=== PATIENT | female | born 1940 | race Caucasian/White ===

== ENCOUNTER 2019-07-09 13:17 | Emergency (ER) | payer OTHER, MEDICAID ==
[~2019-07-09] VITALS: Ht 165.1 cm; Wt 63.5 kg
[2019-07-09] MEDS ORDERED: NS 250 ML IV ONE (13:30)
[2019-07-09] MEDS ORDERED: SPIR25TA PO (13:46)
[2019-07-09] MEDS ORDERED: MELO15TA13 PO (13:46)
[2019-07-09] MEDS ORDERED: OSCAL PO (13:46)
[2019-07-09] MEDS ORDERED: NEU100 PO (13:47)
[2019-07-09] MEDS ORDERED: ESCI10TA PO (13:47)
[2019-07-09] MEDS ORDERED: CYAN250010 PO (13:47)
[2019-07-09] MEDS ORDERED: NOR10 PO (13:47)
[2019-07-09] MEDS ORDERED: MEMA10TA PO (13:47)
[2019-07-09] MEDS ORDERED: SER25 PO (13:47)
[2019-07-09] MEDS ORDERED: DILT120C89 PO (13:47)
[2019-07-09] MEDS ORDERED: MAGN800O PO (13:47)
[2019-07-09] MEDS ORDERED: DOCU-144 PO (13:47)
[2019-07-09 13:52] VITALS: BP_SYST 125
[2019-07-09 14:10] LABS: BASOPHILS % (AUTO) 0.4 % (0.0-2.0); EOSINOPHILS % (AUTO) 0.8 % (0.0-4.0); HEMATOCRIT 31.2 % (36-48); HEMOGLOBIN 10.2 g/dL (12.0-16.0); LYMPHOCYTES # (AUTO) 1.3 K/uL (1.0-5.5); LYMPHOCYTES % (AUTO) 22.3 % (20.5-51.5); MEAN CORPUSCULAR HEMOGLOBIN 29 pg (27-31); MEAN CORPUSCULAR HGB CONC 33 % (32-36); MEAN CORPUSCULAR VOLUME 87 fL (79.0-98.0); MONOCYTES # (AUTO) 0.5 K/uL (0.0-1.0); MONOCYTES % (AUTO) 9.4 % (1.7-9.3); NEUTROPHILS # (AUTO) 3.9 K/uL (1.8-7.7); NEUTROPHILS % (AUTO) 67.1 % (40.0-70.0); PLATELET COUNT (AUTO) 281 K/uL (130-430); RED BLOOD CELL COUNT(AUTO) 3.58 MIL/uL (4.2-6.2); RED CELL DISTRIBUTION WIDTH 15.4 % (9.0-15.0); WHITE BLOOD COUNT (AUTO) 5.8 K/uL (4.8-10.8)
[2019-07-09 14:22] LABS: ANION GAP 7 (5-15); CALCIUM 8.6 mg/dL (8.4-11.0); CHLORIDE 105 mmol/L (98-107); CREATININE 0.94 mg/dL (0.55-1.30); GLUCOSE 79 mg/dL (70-99); POTASSIUM 4.5 mmol/L (3.5-5.1); SODIUM SERUM 139 mmol/L (136-145); UREA NITROGEN, BLOOD 19 mg/dL (8-21)
[2019-07-09 14:28] LABS: ALANINE AMINOTRANSFERASE 17 U/L (12-78); ALBUMIN 2.8 g/dL (3.4-4.8); ASPARTATE AMINOTRANSFERASE 13 U/L (10-37); TOTAL BILIRUBIN 0.2 mg/dL (0.0-1.0)
[2019-07-09 14:42] LABS: PROTHROMBIN TIME 10.4 SECS (9.5-12.5)
[2019-07-09 16:43] LABS: BILIRUBIN,URINE NEGATIVE (NEGATIVE); BLOOD, URINE NEGATIVE (NEGATIVE); CLARITY/URINE CLEAR (CLEAR); COLOR,URINE YELLOW (YELLOW); GLUCOSE,URINE NEGATIVE (NEGATIVE); KETONES,URINE NEGATIVE (NEGATIVE); LEUKOCYTE ESTERASE ,URINE NEGATIVE (NEGATIVE); NITRITE, URINE NEGATIVE (NEGATIVE); PROTEIN URINE NEGATIVE (NEGATIVE); UROBILINOGEN,URINE 0.2 (0.2-1.0)
[2019-07-09 17:58] VITALS: BP_SYST 129
== END 2019-07-09 17:58 | disposition home or self-care (01) ==
LOC: SED 13:17
DX: M25.562 Pain in left knee (principal); M25.561 Pain in right knee; Z00.00 Encounter for general adult medical examination without abnormal findings; Z79.899 Other long term (current) drug therapy
CPT/HCPCS: 36415; 71045; 80053; 81003; 83605; 84484; 85025; 85610; 85730; 86710; 87040; 87086; 93005; 99285; J7030

== ENCOUNTER 2019-08-23 13:02 | Inpatient (IN) | payer OTHER, MEDICAID ==
[~2019-08-23] VITALS: Ht 152.4 cm; Wt 69.4 kg
[2019-08-23 13:02] VITALS: BP_SYST 123
[~2019-08-23 13:02] MED LIST: CYAN250010 PO; DILT120C89 PO; DOCU-144 PO; ESCI10TA PO; MAGN800O PO; MELO15TA13 PO; MEMA10TA PO; NEU100 PO; NOR10 PO; OSCAL PO; SER25 PO; SPIR25TA PO
--- NOTE | 2019-08-23 13:02 | NUR ---
Patient to ER bed 3 to gown for evaluation. Side rails up. Report given to YANELIS Gregg.
--- NOTE | 2019-08-23 13:15 | NUR ---
VANDANA TO ASSUEM CARE. PT CALM, ALERT, RESP UNLABORED, SKIN WARM AND DRY. ROMANIAN SPEAKING IN FULL COMPLETE SENTENCES. DENIES PAIN. BLE 2+ PTTING EDEMA. NO DYSPNEA, NSR ON MONITOR NO ECTOPY
--- NOTE | 2019-08-23 13:20 | NUR ---
DR NICHOLS IN TO ASSESS
[2019-08-23] MEDS ORDERED: DONE10TA44 PO (13:32)
[2019-08-23] MEDS ORDERED: ACET325T53 PO (13:32)
[2019-08-23] MEDS ORDERED: OSCD500 PO (13:32)
[2019-08-23] MEDS ORDERED: ACET-2634 PO (13:32)
[2019-08-23] MEDS ORDERED: NITSL SL (13:32)
--- NOTE | 2019-08-23 13:33 | NUR ---
Medication reconciliation completed with information provided by [facility]. Any prior medication reconciliation on file was reviewed and corrected.
[2019-08-23 14:23] LABS: BASOPHILS % (AUTO) 0.4 % (0.0-2.0); EOSINOPHILS # (AUTO) 0.1 K/uL (0.0-0.4); EOSINOPHILS % (AUTO) 1.2 % (0.0-4.0); HEMATOCRIT 25.9 % (36-48); HEMOGLOBIN 8.6 g/dL (12.0-16.0); LYMPHOCYTES # (AUTO) 1.4 K/uL (1.0-5.5); LYMPHOCYTES % (AUTO) 17.2 % (20.5-51.5); MEAN CORPUSCULAR HEMOGLOBIN 29 pg (27-31); MEAN CORPUSCULAR HGB CONC 33 % (32-36); MEAN CORPUSCULAR VOLUME 87 fL (79.0-98.0); MONOCYTES # (AUTO) 0.6 K/uL (0.0-1.0); MONOCYTES % (AUTO) 7.4 % (1.7-9.3); NEUTROPHILS # (AUTO) 6.1 K/uL (1.8-7.7); NEUTROPHILS % (AUTO) 73.8 % (40.0-70.0); PLATELET COUNT (AUTO) 242 K/uL (130-430); RED BLOOD CELL COUNT(AUTO) 2.99 MIL/uL (4.2-6.2); WHITE BLOOD COUNT (AUTO) 8.3 K/uL (4.8-10.8)
[2019-08-23 14:39] LABS: ANION GAP 6 (5-15); CHLORIDE 106 mmol/L (98-107); CREATININE 0.94 mg/dL (0.55-1.30); GLUCOSE 100 mg/dL (70-99); POTASSIUM 3.9 mmol/L (3.5-5.1); SODIUM SERUM 139 mmol/L (136-145); UREA NITROGEN, BLOOD 17 mg/dL (8-21)
--- NOTE | 2019-08-23 14:50 | NUR ---
RESP UNLABORED, SLEEPING, EASILY AROUSED. VSS, NSR ON MONITOR NO ECTOPY. RESULTS PENDING
[2019-08-23 14:53] LABS: ALANINE AMINOTRANSFERASE 15 U/L (12-78); ALBUMIN 2.9 g/dL (3.4-4.8); ASPARTATE AMINOTRANSFERASE 17 U/L (10-37); TOTAL BILIRUBIN 0.2 mg/dL (0.0-1.0)
[2019-08-23] MEDS ORDERED: ceFAZolin SODIUM 1 GM in D5W 50 ML IV ONE (15:15)
[2019-08-23] MEDS ORDERED: ceFAZolin SODIUM 1 GM VIAL ONE (15:39)
--- NOTE | 2019-08-23 15:49 | NUR ---
Patient will be admitted to care of MD. Admitted to M/S unit. Will go to room 111A. Belongings list completed. Complete and up to date summary report printed. SBAR report to be given at bedside with opportunity for questions.
--- NOTE | 2019-08-23 15:56 | NUR ---
ADMISSION NOTE Received patient from ER via rajwinder, received report from Cristino HILARIO. Patient admitted with diagnosis of Cellulitis. Patient oriented to hospital routine, call light, toileting and safety-patient verbalized understanding.
--- NOTE | 2019-08-23 16:00 | NUR ---
NOTES- IN BED, AWAKE FORGETFUL. SPEAK CZECH, UNDERSTAND SIMPLE HUNGARIAN. DENIES ANY PAIN OR DISCOMFORT. REDNESS ON BILATERAL LOWER EXTREMITIES. ORIENTED TO ENVIRONMENT AND CALL LIGHT USE. BED ALARM ON. WILL MONITOR.
[2019-08-23 16:48] VITALS: BP_SYST 141
--- NOTE | 2019-08-23 17:32 | NUR ---
NOTES- ASSISTED TO THE BATHROOM AND VOIDED, AMBULATE WITH STEADY GAIT. NO ACUTE DISTRESS NOTED.
--- NOTE | 2019-08-23 18:26 | NUR ---
closing notes- In bed, trying to get some sleep. does not want to eat, had sandwich earlier. no acute distress noted. will endorse to night nurse to take picture in the lower extremities.
--- NOTE | 2019-08-23 19:30 | NUR ---
Opening notes Patient is up in bed finishing dinner at this time. Breathing is even and unlabored. No signs of distress noted. 20G to right forearm is patent and saline locked. Patient has no other needs at this time. Bed is locked in the lowest position with call light within reach. Side rails up X 3. Bed alarm is on.
[2019-08-23 20:00] VITALS: BP_SYST 115
--- NOTE | 2019-08-23 21:00 | NUR ---
RN Rounds Patient is resting in bed at this time. Breathing is even and unlabored. No signs of distress noted. Patient has complaints of pain to bilateral lower extremities and right shoulder, will page MD. Vital signs are stable. No other needs at this time. Bed is locked in the lowest position with call light within reach. Side rails up X 3. Bed alarm is on.
--- NOTE | 2019-08-23 21:23 | NUR ---
Paged Dr. Evans, Rodney s/w Norma
--- NOTE | 2019-08-23 21:45 | NUR ---
Spoke to MD Evans Spoke to Dr. Evans and updated him on patient's current pain status. New orders given for pain medication, RN verified orders and is to input. to come in at a later time to assess and complete med rec.
[2019-08-23] MEDS: HYDROcodone/ACETAMIN 10-325 MG TAB PO PRN (22:27)
--- NOTE | 2019-08-23 22:30 | NUR ---
Medication Administered PRN pain medication. Educated patient on action and side effects, patient verbalized an understanding. No other needs at this time. Bed is locked in the lowest position with call light within reach. Bed alarm is on with side rails up X 3.
[2019-08-24 00:30] VITALS: BP_SYST 101
--- NOTE | 2019-08-24 00:30 | NUR ---
RN Rounds Patient is resting in bed with eyes closed. Breathing is even and unlabored. No signs of distress noted. Patient does not have any needs at this time. Bed is locked in the lowest position with call light within reach. Bed alarm is on with side rails up X 3.
[2019-08-24] MEDS: HYDROcodone/ACETAMIN 10-325 MG TAB PO PRN ×2 (04:54→22:01)
[2019-08-24] MEDS ORDERED: NITROGLYCERIN 0.4 MG TAB.SUBL SL STA (05:02)
[2019-08-24] MEDS ORDERED: MILK OF MAGNESIA 30 ML UDC PO PRN (05:15)
[2019-08-24] MEDS ORDERED: ACETAMINOPHEN 500 MG TABLET PO PRN (05:15)
[2019-08-24] MEDS ORDERED: ACETAMINOPHEN 325 MG TABLET PO PRN (05:15)
--- NOTE | 2019-08-24 05:15 | NUR ---
Dr. Evans at bedside Dr. Evans seen and examined patient. New orders inputted by
--- NOTE | 2019-08-24 06:57 | NUR ---
Nutrition Update Juve Scale 18 noted. Pt admitted for Cellulitis Diet: Regular BMI: 28.5 kg/m2 RD to follow per nutrition care standards.
--- NOTE | 2019-08-24 07:06 | NUR ---
Closing notes Patient is in bed resting. Breathing is even and unlabored. No signs of distress noted. 20G to right forearm is patent and saline locked. Patient uses BSC to void, patient is steady on her feet, standby asisst. Bed is locked in the lowest position with call light within reach. Side rails up X 3. Bed alarm is on. All needs met throughout shift. Will endorse care to dayshift RN
--- NOTE | 2019-08-24 07:15 | NUR ---
OPENING NOTES PT AWAKE, ALERT, AND ORIENTED TO PERSON TIME AND PLACE AT THIS TIME. CONFUSED IN CONVERSATION, CONTINUES TO MENTION SHOES. NONLABORED BREATHING NOTED ON ROOM AIR, O2 AT 98%. PT DENIES PAIN AND SOB AT THIS TIME. PT PULLED OUT IV LINE, REFUSES TO HAVE ONE INSERTED AT THIS TIME, WILL ATTEMPT LATER. NO ACUTE DISTRESS NOTED. BED LOCKED AND IN LOWEST POSITION. ALL NEEDS MET. CALL LIGHT IN REACH. FALL AND ASPIRATION PRECAUTIONS IN PLACE. CONTINUE TO MONITOR.
[2019-08-24 08:00] VITALS: BP_SYST 136
[2019-08-24] MEDS ORDERED: ESCITALOPRAM OXALATE 10 MG TABLET PO SCH (09:00)
[2019-08-24] MEDS ORDERED: CALCIUM CARBONATE/VITAMIN D3 1 TAB TABLET PO SCH (09:00)
[2019-08-24] MEDS: DOCUSATE SODIUM 100 MG CAPSULE PO SCH ×2 (09:53→20:43)
[2019-08-24] MEDS: CYANOCOBALAMIN 1000 mCg TABLET PO SCH (09:53)
[2019-08-24] MEDS: MELOXICAM 7.5 MG TABLET PO SCH (09:53)
[2019-08-24] MEDS: CALCIUM CARBONATE/VITAMIN D3 1 TAB TABLET PO SCH (09:54)
[2019-08-24] MEDS: MEMANTINE HCL 5 MG TABLET PO SCH ×2 (09:54→20:43)
[2019-08-24] MEDS: DILTIAZEM HCL 120 MG CAP.SR.24H PO SCH (09:54)
[2019-08-24] MEDS: amLODIPine BESYLATE 10 MG TABLET PO SCH (09:54)
[2019-08-24] MEDS: DONEPEZIL HCL 5 MG TABLET (ARICEPT) PO SCH (09:55)
[2019-08-24] MEDS: GABAPENTIN 100 MG CAPSULE PO SCH ×3 (09:55→20:44)
[2019-08-24] MEDS: CITALOPRAM HYDROBROMIDE 20 MG TABLET PO SCH (09:55)
[2019-08-24] MEDS: SPIRONOLACTONE 25 MG TABLET (ALDACTONE) PO SCH (09:55)
[2019-08-24] MEDS: QUEtiapine FUMARATE 25 MG TABLET PO SCH ×2 (09:55→20:44)
--- NOTE | 2019-08-24 09:55 | NUR ---
ROUTINE MEDS ROUTINE MEDS ADMINISTERED ORDERED PER MD, EDUCATION GIVEN, TOLERATED WILL. CONTINUE TO MONITOR.
[2019-08-24 12:30] VITALS: BP_SYST 148
--- NOTE | 2019-08-24 13:00 | NUR ---
IV RE-INSERTION: PT REMOVED IV THIS AM. PT GIVING CONSENT TO START IV AT THIS TIME. SUCCESSFUL AFTER 4 ATTEMPTS. TWO ATTEMPTS FROM YANELIS WISEMAN. TWO ATTEMPTS FROM YANELIS YANG. STARTED PT ON VANCO. WILL OBSERVE FOR ANY SIGNS OF INFILTRATION.
[2019-08-24] MEDS: VANCOMYCIN HCL 1 GM/NS PREMIX 250 ML IV SCH (13:51)
--- NOTE | 2019-08-24 16:30 | NUR ---
PT PULLED OUT IV. PT REFUSING TO HAVE IV LINE RE-INSERTED. AWARE. MIDLINE PLACEMENT ORDER RECEIVED. CALLED PT'S CHILD AMANDA LOPEZ TWICE, AMANDA NOT ANSWERING, LEFT VOICEMAIL FOR CALL BACK.
[2019-08-24 16:31] VITALS: BP_SYST 129
--- NOTE | 2019-08-24 18:45 | NUR ---
CLOSING NOTES PT AWAKE AND SITTING UP IN BED. NONLABORED BREATHING NOTED ON ROOM AIR. PT DENIES PAIN AND SOB AT THIS TIME. NO ACUTE DISTRESS NOTED. BED LOCKED AND IN LOWEST POSITION. ALL NEEDS MET. CALL LIGHT IN REACH. FALL AND ASPIRATION PRECAUTIONS IN PLACE. WILL ENDORSE TO NOC NURSE.
--- NOTE | 2019-08-24 19:30 | NUR ---
Opening notes Patient is up out of bed at this time. Breathing is even and unlabored. No signs of distress noted. Patient is alert, but not oriented to time or place. She is steady on her feet, requires frequent reorientation. Patient does not currently have IV access and MD is aware, waiting to get consent for midline placement. No needs at this time. Bed is locked in the lowest position with call light within reach. Side rails up X 3.
[2019-08-24] MEDS: MUPIROCIN 2% TOPICAL OINTMENT 22 GM NS SCH (20:44)
--- NOTE | 2019-08-24 20:45 | NUR ---
Medication Administered scheduled medication. Educated patient on action and side effects, patient verbalized an understanding. Patient likes to be standing by door, place chair next to door, patient is no sitting and is visible to nurses station. No other needs at this time. Bed is locked in the lowest position with call light within reach.
--- NOTE | 2019-08-24 21:18 | NUR ---
Obtained Consent spoke to patient's daughter, Cary Damico, over the phone and obtained consent for midline placement. Charge nurse YANELIS Calhoun verified consent.
--- NOTE | 2019-08-24 21:30 | NUR ---
Left Message for PICC line nurse Left message for Kirk informing him we obtained consent for midline placement, and if he could come and place midline before 11AM tomorrow.
--- NOTE | 2019-08-24 22:47 | NUR ---
RN Rounds Patient is now resting in bed. Breathing is even and unlabored. No signs of distress noted. Bed is locked in the lowest position with call light within reach. Bed alarm is on with side rails up X3
[2019-08-25] VITALS: BP_SYST 120
--- NOTE | 2019-08-25 00:30 | NUR ---
RN Rounds Patient is now resting in bed. Breathing is even and unlabored. No signs of distress noted. At times does get out of bed and has to be reoriented back into bed. Bed is locked in the lowest position with call light within reach. Bed alarm is on with side rails up X3
--- NOTE | 2019-08-25 03:00 | NUR ---
RN Rounds Patient is resting in bed with eyes closed. Breathing is even and unlabored. No signs of distress noted. Bed is locked in the lowest position with call light within reach. Bed alarm is on with side rails up X3
[2019-08-25 06:17] LABS: PROTHROMBIN TIME 10.5 SECS (9.5-12.5)
[2019-08-25 06:20] LABS: BASOPHILS % (AUTO) 0.6 % (0.0-2.0); EOSINOPHILS # (AUTO) 0.1 K/uL (0.0-0.4); EOSINOPHILS % (AUTO) 1.9 % (0.0-4.0); HEMATOCRIT 26.5 % (36-48); HEMOGLOBIN 8.6 g/dL (12.0-16.0); LYMPHOCYTES # (AUTO) 1.3 K/uL (1.0-5.5); LYMPHOCYTES % (AUTO) 19.3 % (20.5-51.5); MEAN CORPUSCULAR HEMOGLOBIN 28 pg (27-31); MEAN CORPUSCULAR HGB CONC 33 % (32-36); MEAN CORPUSCULAR VOLUME 86 fL (79.0-98.0); MONOCYTES # (AUTO) 0.7 K/uL (0.0-1.0); MONOCYTES % (AUTO) 10.4 % (1.7-9.3); NEUTROPHILS # (AUTO) 4.4 K/uL (1.8-7.7); NEUTROPHILS % (AUTO) 67.8 % (40.0-70.0); PLATELET COUNT (AUTO) 247 K/uL (130-430); RED BLOOD CELL COUNT(AUTO) 3.06 MIL/uL (4.2-6.2); RETICULOCYTE COUNT 1.7 % (0.5-1.5); WHITE BLOOD COUNT (AUTO) 6.6 K/uL (4.8-10.8)
--- NOTE | 2019-08-25 06:39 | NUR ---
Closing notes Patient is in bed resting. Breathing is even and unlabored. No signs of distress noted. Patient uses BSC or bathroom to void, patient is steady on her feet, standby assist. Occult stool sample was not collected, patient did not have BM during shift. Bed is locked in the lowest position with call light within reach. Side rails up X 3. Bed alarm is on. All needs met throughout shift. Will endorse care to dayshift RN
[2019-08-25 06:42] LABS: SODIUM SERUM 138 mmol/L (136-145)
[2019-08-25 06:43] LABS: ANION GAP 4 (5-15); CALCIUM 8.2 mg/dL (8.4-11.0); CHLORIDE 105 mmol/L (98-107); CREATININE 1.07 mg/dL (0.55-1.30); GLUCOSE 63 mg/dL (70-99); TOTAL BILIRUBIN 0.4 mg/dL (0.0-1.0); UREA NITROGEN, BLOOD 29 mg/dL (8-21)
[2019-08-25 06:44] LABS: ALANINE AMINOTRANSFERASE 15 U/L (12-78); ALBUMIN 3.2 g/dL (3.4-4.8); ASPARTATE AMINOTRANSFERASE 14 U/L (10-37); LACTATE DEHYDROGENASE 189 U/L (81-234)
[2019-08-25 07:43] LABS: TOTAL IRON BIND. CAPACITY 243 ug/dL (250-450)
[2019-08-25 08:00] VITALS: BP_SYST 136
[2019-08-25] MEDS: CALCIUM CARBONATE/VITAMIN D3 1 TAB TABLET PO SCH (08:27)
[2019-08-25] MEDS: amLODIPine BESYLATE 10 MG TABLET PO SCH (08:29)
[2019-08-25] MEDS: CITALOPRAM HYDROBROMIDE 20 MG TABLET PO SCH (08:29)
[2019-08-25] MEDS: SPIRONOLACTONE 25 MG TABLET (ALDACTONE) PO SCH (08:30)
[2019-08-25] MEDS: MEMANTINE HCL 5 MG TABLET PO SCH ×2 (08:30→21:51)
[2019-08-25] MEDS: QUEtiapine FUMARATE 25 MG TABLET PO SCH ×2 (08:31→21:51)
[2019-08-25] MEDS: DILTIAZEM HCL 120 MG CAP.SR.24H PO SCH (08:31)
[2019-08-25] MEDS: CYANOCOBALAMIN 1000 mCg TABLET PO SCH (08:31)
[2019-08-25] MEDS: GABAPENTIN 100 MG CAPSULE PO SCH ×3 (08:31→21:51)
[2019-08-25] MEDS: DONEPEZIL HCL 5 MG TABLET (ARICEPT) PO SCH (08:31)
[2019-08-25] MEDS: DOCUSATE SODIUM 100 MG CAPSULE PO SCH ×2 (08:31→21:50)
[2019-08-25] MEDS: MUPIROCIN 2% TOPICAL OINTMENT 22 GM NS SCH ×2 (08:32→21:50)
[2019-08-25] MEDS: MELOXICAM 7.5 MG TABLET PO SCH (09:08)
--- NOTE | 2019-08-25 09:36 | NUR ---
ALERT, ORIENTED, AND APPROPRIATE, MINIMAL ASSISTANCE FROM BED TO BSC, WALKED WITH A WALKER, SLOW BUT STEADY. ON FULL LIQUID DIET, TOLERATED WELL, DENIED ABDOMINAL PAIN AT THIS TIME
--- NOTE | 2019-08-25 11:15 | NUR ---
Assumed care for patient. Resting in bed. Persian speaking only. No shortness of breath on room air. Denies any pain. Oriented to name only. Thinks that her room is her house and is not aware of time. Midline in right upper arm intact. Fall and safety checks in place. Call light within reach. Will continue to monitor.
[2019-08-25] MEDS: VANCOMYCIN HCL 1 GM/NS PREMIX 250 ML IV SCH (11:53)
[2019-08-25 12:24] VITALS: BP_SYST 110
--- NOTE | 2019-08-25 12:30 | NUR ---
ROUNDS Resting in bed. No sign of distress. Midline IV intact. Administered antibiotics. Ambulates to the restroom independently. Safety checks done. Will continue to monitor.
--- NOTE | 2019-08-25 14:28 | NUR ---
SS NOTES/DCP: FISCAL SPECIALIST was referred by CM to see patient for DCP. Pt is Macedonian speaker only, collateral done with grand-daughter Cary Simmons @ [phone] instead. Pt is a resident at [facility] and has been there for 1 month now. Prior to admission at SNF, pt was staying with daughter and grand-daughter but patient needed more care prompting them to admit pt to SNF after a hospitalization. Pt is dependent on all her ADLs. Per grand-dtr, pt is ambulatory at times but sometimes refuses to walk. Pt also has Alzheimer/dementia for 3 years now. Per grand-daughter, pt's NOK, Cary Simmons (dtr) is responsible for patient's finances but Bryon Aguero (son) is the patient's DPOA (phone # unknown). Pt's source of income is her disability. When discharge, family prefers for patient to go back to [facility], as this is her permanent residence now. FISCAL SPECIALIST provided grand-dtr with phone number and encourage to contact SS if questions arise. No further SS needs identified but will remain available when needed.
--- NOTE | 2019-08-25 14:56 | NUR ---
ROUNDS Resting in bed. No sign of distress. Ate most of her lunch. Safety checks done. Call light within reach. Will continue to monitor.
[2019-08-25 16:12] VITALS: BP_SYST 118
--- NOTE | 2019-08-25 17:00 | NUR ---
ROUNDS Asleep in bed. No sign of distress. Safety checks done. Call light within reach. Will continue to monitor.
--- NOTE | 2019-08-25 18:36 | NUR ---
CLOSING NOTES Still asleep in bed. No sign of distress. Midline on right upper arm intact. All needs met throughout shift. Fall and safety checks done. Call light within reach. Will endorse to night nurse.
[2019-08-25 19:00] VITALS: BP_SYST 138
--- NOTE | 2019-08-25 19:15 | NUR ---
change of shift.pt.presents isolation status;contact;mrsa;nares+.pt.presents quiescent affect;calm,resting.pt.presents rt.bicept;mid-line.placement;08/25/19.iv access lock. general status stable.respiratory status stable;unlabored.call light/telephone w/in reach of the pt.
[2019-08-25 20:00] VITALS: BP_SYST 138
--- NOTE | 2019-08-25 20:00 | NUR ---
pt.assessed.v/s assessed;values w/in normal limits.pt.presents language barrier extant;pt's sole language;luxembourgish.i have apprised the pt.that snacks/beverages are available w/in the shift.dinner tray left for pt.pt.aetding to dinner tray.no requests posited@this hour.no c/o pain,nausea.pt.c/o cold.i haver provided blanket;warmed.i provided socks.i have noted the status of the lower extremities;edema,erythema,mottled;2/t cellulitis.pt. capable to reposition self.call light/telephone placed w/in reach of the pt.
--- NOTE | 2019-08-25 21:00 | NUR ---
2100pmedication administered.pt.capable to ingest po medication whole w/out difficulty.no requests posited @this hour.
[2019-08-25] MEDS: HYDROcodone/ACETAMIN 10-325 MG TAB PO PRN (21:50)
--- NOTE | 2019-08-25 22:00 | NUR ---
pt.assessed.pt.had requested medication;pain.i have administered norco;10/325mg po.to re-assess the pain medication efficacy per pain mgx protocol. pt.had requested additional blanket.i have provided the blanket;warmed. call light/telephone placed w/in reach of the pt.
--- NOTE | 2019-08-25 22:17 | NUR ---
LARISA Renee SPOKE WITH SAMANTHA DOMINICK
--- NOTE | 2019-08-26 | NUR ---
pt.assessed.pt.assisted to the restroom.pt.assisted return to bed;gait assessed.unsteady.pt.requested diaper;i provided the indication no diaper policy permitted.i provided under-pants/feminine napkin.i assisted the pt. w/the items.no c/o pain,nausea. no additional requests posited@this hour.v/s assessed values w/in normal limits.call light./telephone placed w/in reach of the pt.
[2019-08-26 00:34] VITALS: BP_SYST 113
--- NOTE | 2019-08-26 01:00 | NUR ---
i have assisted the pt.to the restroom.i have assisted the pt's return to bed.i have provided the pt.w/blanket;warmed.
--- NOTE | 2019-08-26 02:00 | NUR ---
pt.assessed.pt.presents quiescent affect;calm,somnolent.pt.assessed for cleanliness.pt.repositioned.general status stable.respiratory status stable;unlabored.call light/telephone placed w/in reach of the pt.
--- NOTE | 2019-08-26 02:30 | NUR ---
pt.awakened.pt.c/o itchiness.general status.no medications ordered re;itch.;dina paged re;pt's change i status itch.
--- NOTE | 2019-08-26 02:31 | NUR ---
PAGED PAGED DOCTOR Greg MEJIA
--- NOTE | 2019-08-26 03:15 | NUR ---
pt.had requested medication;pain.i have administered norco;10/325mg po. to re-assess the medication efficacy per pain mgx protocol. Addendum: 08/26/19 at 0333 by Alvaro Jaramillo RN i have assisted the pt to the restroom.i have assisted th pt's return to bed.
[2019-08-26] MEDS: HYDROcodone/ACETAMIN 10-325 MG TAB PO PRN (03:20)
--- NOTE | 2019-08-26 03:20 | NUR ---
PETEYD Thelma Renee SPOKE WITH KARAN TAN
--- NOTE | 2019-08-26 04:00 | NUR ---
pt.assessed.pt.presents quiescent affect;calm,somnolent.pt.assessed for cleanliness.pt.repositioned.no c/o pain,nausea.general status stable. respiratory status stable;unlabored.call light/telephone placed w/in reach of the pt.
--- NOTE | 2019-08-26 06:06 | NUR ---
pt.assessed.carla martinez/santos present.assessed the pt.i have conveyed the pt's pertinent info to the dr's respectively. ordered increase in seroquel dose;37.5mg po bid.i conveyed to the pt's stated pain;lt.foot. heel/ankle. has ordered xr-foot.pt.assisted to the restroom.pt. assisted return to bed.mid-line intact;patent.general status stable.respiratory status stable;unlabored.call light/telephone placed w/in reach of the pt. Addendum: 08/26/19 at 0628 by Alvaro Jaramillo RN i have weighed the pt.2/t chf.
[2019-08-26 08:00] VITALS: BP_SYST 141
--- NOTE | 2019-08-26 08:00 | NUR ---
Opening note Pt A/Ox 4. Speaks primarily Greenlandic but understands Citizen Of [place]. RU Midline SL. Pt is eating breakfast with feet dangling. Pt is able to ambulate on own. PERRLA 3mm. No indications of JVD or edema. Bed locked in lowest position with call light in place. Pt is on contact precautions MRSA nares.
[2019-08-26 08:06] LABS: FOLATE (FOLIC ACID) 13.1 ng/mL (>3.0)
[2019-08-26 08:45] VITALS: BP_SYST 141
[2019-08-26] MEDS: QUEtiapine FUMARATE 25 MG TABLET PO SCH ×2 (09:02→21:52)
[2019-08-26] MEDS: CALCIUM CARBONATE/VITAMIN D3 1 TAB TABLET PO SCH (09:02)
[2019-08-26] MEDS: MEMANTINE HCL 5 MG TABLET PO SCH ×2 (09:02→21:52)
[2019-08-26] MEDS: amLODIPine BESYLATE 10 MG TABLET PO SCH (09:03)
[2019-08-26] MEDS: SPIRONOLACTONE 25 MG TABLET (ALDACTONE) PO SCH (09:04)
[2019-08-26] MEDS: DOCUSATE SODIUM 100 MG CAPSULE PO SCH ×2 (09:04→21:51)
[2019-08-26] MEDS: GABAPENTIN 100 MG CAPSULE PO SCH ×3 (09:04→21:52)
[2019-08-26] MEDS: DILTIAZEM HCL 120 MG CAP.SR.24H PO SCH (09:04)
[2019-08-26] MEDS: CYANOCOBALAMIN 1000 mCg TABLET PO SCH (09:04)
[2019-08-26] MEDS: DONEPEZIL HCL 5 MG TABLET (ARICEPT) PO SCH (09:04)
[2019-08-26] MEDS: CITALOPRAM HYDROBROMIDE 20 MG TABLET PO SCH (09:04)
[2019-08-26] MEDS: MUPIROCIN 2% TOPICAL OINTMENT 22 GM NS SCH ×2 (09:05→21:53)
[2019-08-26] MEDS: MELOXICAM 7.5 MG TABLET PO SCH (09:10)
--- NOTE | 2019-08-26 10:00 | NUR ---
Pt BRP, urinated, NO bm. Helped pt back to bed.
[2019-08-26 11:31] LABS: ANION GAP 4 (5-15); CALCIUM 7.9 mg/dL (8.4-11.0); CHLORIDE 103 mmol/L (98-107); CREATININE 0.91 mg/dL (0.55-1.30); GLUCOSE 81 mg/dL (70-99); POTASSIUM 4.1 mmol/L (3.5-5.1); SODIUM SERUM 137 mmol/L (136-145); UREA NITROGEN, BLOOD 20 mg/dL (8-21); VANCOMYCIN,TROUGH 3.5 ug/mL (5.0-10.0)
[2019-08-26] MEDS: VANCOMYCIN HCL 1 GM/NS PREMIX 250 ML IV SCH (11:55)
[2019-08-26 12:00] VITALS: BP_SYST 101
--- NOTE | 2019-08-26 13:00 | NUR ---
Pt BRP, scant smear in underwear no enough for occult sample. Noted dark brown color no blood indicated. Changed chucks and bedding.
[2019-08-26] MEDS ORDERED: VANCOMYCIN HCL 500 MG in NS 100 ML IV ONE (15:00)
[2019-08-26 16:10] VITALS: BP_SYST 109
--- NOTE | 2019-08-26 16:30 | NUR ---
Wound RN bedside. Provided assessment of PT's legs. Recommendations received.
--- NOTE | 2019-08-26 16:50 | NUR ---
Wound Evaluation: Wound Consult ordered for Low Juve Score. Patient evaluated for a low Juve score of 16. Patient was awake, alert, Malian speaking, and received in a Mills Bed with an IsoFlex JAKOB mattress. Patient is able to turn in bed independently. Recommend encourage and assist patient as needed with repositioning every 2 hours with pillow support. Elevate bilateral lower extremities above the heart with pillows. Offload pressure areas with pillows for pressure re-distribution. Perform skin care and monitor skin integrity Q shift. Use moisture barrier cream on moisture susceptible areas QID and PRN for soiling. Skin assessment: 1. Left Lower Extremity: Cellulitis with erythema and 1+ pitting edema, present on admission. Extremity has no calor. No odor, no drainage, weeping or wounds present. 2. Right Lower Extremity: Cellulitis with erythema and 1+ pitting edema, present on admission. Extremity has no calor. No odor, no drainage, weeping or wounds present. Recommend: Elevate bilateral lower extremities above the heart with pillows while in bed. Encourage 20-30 ankle pumps q hour while in bed. Encourage ambulation.
[2019-08-26] MEDS ORDERED: BISACODYL 5 MG TABLET.DR (DULCOLAX) PO ONE (17:00)
--- NOTE | 2019-08-26 17:20 | NUR ---
MD Rounds Vin Nichole. bedside. Provided update. Received orders for GI consult, Dr. Morgan.
--- NOTE | 2019-08-26 17:45 | NUR ---
CONSULTATION PAGED REASON FOR CONSULTATION:ANEMIA WAS CONSULT CALLED?Y PERSON WHO WAS NOTIFIED:INÉS BLEVINS CONSULTING PHYSICIAN:INÉS BLEVINS SLATE CUTTER SPECIALTY:GI SLATE CUTTER PHONE NUMBER:[phone] ORDERING PHYSICIAN:LUCIO HAILE
--- NOTE | 2019-08-26 18:00 | NUR ---
Per Dr Morgan, called daughter to obtain consent for Colonoscopy and Endoscopy. Consent forms are in pt folder. Possible to obtain consent with PT with digital designer. PT NPO, and angel Kennedy @ 1830. Will endorse to night nurse.
[2019-08-26] MEDS ORDERED: GOLYTELY / COLYTE SOLUTION 4 LITERS PO ONE (18:30)
--- NOTE | 2019-08-26 18:30 | NUR ---
Per MD Evans, applied REYMUNDO compression wrap bilaterally lower extremities.
--- NOTE | 2019-08-26 19:02 | NUR ---
Pt A/Ox 4. Speaks primarily French but understands Vietnamese. RU Midline SL. Pt is NPO. Pt is able to ambulate on own. PERRLA 3mm. No indications of JVD edema bilaterally REYMUNDO bandage in place. Bed locked in lowest position with call light in place. Pt is on contact precautions.
[2019-08-26 20:00] VITALS: BP_SYST 121
--- NOTE | 2019-08-26 20:00 | NUR ---
PERUVIAN SPEAKING. PT PULLED OUT SOUTH MIDLINE. PRESSURE DRSG APPLIED. AMBULATES TO BATHROOM.
--- NOTE | 2019-08-26 22:00 | NUR ---
BOUTS OF CONFUSION. ENCOURAGE TO DRINK GOLYTELY. DRANK ONLY VERY LITTLE. LIKES TO WANDER IN ROOM AND HALLWAY. REQUIRES FREQUENT INTERVENTIONS AND REMINDER.
[2019-08-26] MEDS: LORazepam 1 MG TABLET PO PRN (23:58)
--- NOTE | 2019-08-27 | NUR ---
ATIVAN 0.5 MG PO GIVEN FOR SOMNOLENCE. ENCOURAGED TO GO TO BED AND SLEEP.
[2019-08-27 00:37] VITALS: BP_SYST 121
--- NOTE | 2019-08-27 02:00 | NUR ---
SALINE LOCK STARTED IN RIGHT FOREARM GAUGE # 20.
--- NOTE | 2019-08-27 03:00 | NUR ---
OCCASIONALLY GETS OUT OF BED, AMBULATES TO BATHROOM AND WANDERS IN THE HALLWAY. NEEDS INSTRUCTIONS AND REMINDER.
--- NOTE | 2019-08-27 05:40 | NUR ---
DR URBINA HERE, SEEN PT. UPDATED ON STATUS. NEW ORDERS GIVEN TO BE IMPLEMENTED.
--- NOTE | 2019-08-27 06:00 | NUR ---
SLEPT WELL FOR THE REST OF THE NIGHT. REMAINS IN GUARDED CONDITION.
[2019-08-27 06:26] LABS: BASOPHILS % (AUTO) 0.5 % (0.0-2.0); EOSINOPHILS # (AUTO) 0.1 K/uL (0.0-0.4); EOSINOPHILS % (AUTO) 1.6 % (0.0-4.0); HEMATOCRIT 24.7 % (36-48); HEMOGLOBIN 8.2 g/dL (12.0-16.0); LYMPHOCYTES # (AUTO) 1.1 K/uL (1.0-5.5); LYMPHOCYTES % (AUTO) 15.2 % (20.5-51.5); MEAN CORPUSCULAR HEMOGLOBIN 29 pg (27-31); MEAN CORPUSCULAR HGB CONC 33 % (32-36); MEAN CORPUSCULAR VOLUME 86 fL (79.0-98.0); MONOCYTES # (AUTO) 0.6 K/uL (0.0-1.0); MONOCYTES % (AUTO) 8.8 % (1.7-9.3); NEUTROPHILS # (AUTO) 5.4 K/uL (1.8-7.7); NEUTROPHILS % (AUTO) 73.9 % (40.0-70.0); PLATELET COUNT (AUTO) 258 K/uL (130-430); RED BLOOD CELL COUNT(AUTO) 2.87 MIL/uL (4.2-6.2); RED CELL DISTRIBUTION WIDTH 15.1 % (9.0-15.0); WHITE BLOOD COUNT (AUTO) 7.3 K/uL (4.8-10.8)
[2019-08-27 06:52] LABS: ALANINE AMINOTRANSFERASE 15 U/L (12-78); ANION GAP 5 (5-15); ASPARTATE AMINOTRANSFERASE 14 U/L (10-37); CALCIUM 8.1 mg/dL (8.4-11.0); CHLORIDE 106 mmol/L (98-107); CREATININE 0.72 mg/dL (0.55-1.30); GLUCOSE 79 mg/dL (70-99); POTASSIUM 4.3 mmol/L (3.5-5.1); SODIUM SERUM 138 mmol/L (136-145); TOTAL BILIRUBIN 0.3 mg/dL (0.0-1.0); UREA NITROGEN, BLOOD 22 mg/dL (8-21)
--- NOTE | 2019-08-27 07:38 | NUR ---
GI , DR HOGUE WAS CALLED, RE: TO INFORM THAT CONSENTS FOR EGD AND COLONOSCOPY WERE NOT OBTAINED FROM FAMILY. SPOKE TO STEPHEN
--- NOTE | 2019-08-27 07:40 | NUR ---
Attempted to call the family patient's daughter - no answer, the line kept ringing, will attempt again.
--- NOTE | 2019-08-27 07:40 | NUR ---
Spoke with Dr. Morgan to inform him that the patient's family has not returned phone calls for consent for EGD/Colonoscopy and the patient refused to take Colonoscopy prep - per Dr. Morgan, please try to call the family again.
[2019-08-27] MEDS ORDERED: MEPERIDINE HCL/PF 100 MG/ML AMP ONE (07:44)
[2019-08-27] MEDS ORDERED: SIMETHICONE 40 MG/0.6 ML ML ONE (07:45)
[2019-08-27] MEDS ORDERED: MIDAZOLAM HCL 5 MG/5 ML VIAL ONE (07:45)
--- NOTE | 2019-08-27 08:00 | NUR ---
Opening note patient resting in bed, a/ox1-2, reoriented to place, time and event, she verbalized understanding, patient is mostly Costa Rican speaking, changed the patient's linen and gown, provided with james-care, educated her application operations engineer light system she verbalized understanding, bed in lowest position, three side rails up, bed alarm on, bed close to nursing station, fall, aspiration and isolation precautions in place.
--- NOTE | 2019-08-27 08:30 | NUR ---
Attempt to call the family Cary Rubi [phone], lines keeps on ringing, no voicemail, will attempt again.
[2019-08-27] MEDS: DILTIAZEM HCL 120 MG CAP.SR.24H PO SCH (09:00)
[2019-08-27] MEDS: MELOXICAM 7.5 MG TABLET PO SCH (09:01)
[2019-08-27] MEDS: SPIRONOLACTONE 25 MG TABLET (ALDACTONE) PO SCH (09:01)
[2019-08-27] MEDS: CYANOCOBALAMIN 1000 mCg TABLET PO SCH (09:01)
[2019-08-27] MEDS: amLODIPine BESYLATE 10 MG TABLET PO SCH (09:01)
[2019-08-27] MEDS: GABAPENTIN 100 MG CAPSULE PO SCH ×3 (09:01→21:39)
[2019-08-27] MEDS: CALCIUM CARBONATE/VITAMIN D3 1 TAB TABLET PO SCH (09:01)
[2019-08-27] MEDS: DOCUSATE SODIUM 100 MG CAPSULE PO SCH ×2 (09:01→21:38)
[2019-08-27] MEDS: MUPIROCIN 2% TOPICAL OINTMENT 22 GM NS SCH ×2 (09:02→21:38)
[2019-08-27] MEDS: DONEPEZIL HCL 5 MG TABLET (ARICEPT) PO SCH (09:02)
[2019-08-27] MEDS: QUEtiapine FUMARATE 25 MG TABLET PO SCH ×3 (09:02→21:39)
[2019-08-27] MEDS: CITALOPRAM HYDROBROMIDE 20 MG TABLET PO SCH (09:02)
[2019-08-27] MEDS: MEMANTINE HCL 5 MG TABLET PO SCH ×2 (09:02→21:39)
--- NOTE | 2019-08-27 09:05 | NUR ---
Medication/Dr. Morgan patient resting in bed, being assessed by Dr. Morgan at bedside, per Dr. Morgan, okay to give medications to the patient, per Dr. Morgan please try to call the family again. Educated the patient on medications uses and potential side effects, she verbalized understanding and tolerated well, bed in lowest position, three side rails up, bed alarm on, bed close to nursing station, fall, aspiration and isolation precautions in place, call light placed within reach.
[2019-08-27 09:36] VITALS: BP_SYST 149
--- NOTE | 2019-08-27 10:37 | NUR ---
Hygiene assisted patient to bedside commode, patient was walking and voided on herself and the floor, called EVS once the urine was cleaned off of the floor, provided james-care for the patient and changed her gown and her linen, assisted the patient back into bed, she tolerated well, continuing to monitor her, bed in lowest position, three side rails up, bed alarm on, bed close to nursing station, fall, aspiration and isolation precautions in place.
--- NOTE | 2019-08-27 11:18 | NUR ---
RN rounds/medication spoke with Dr. Morgan, the patient can resume a regular diet. IV antibiotics hung and infusing well, IV line is patent, no s/s of infiltration, continuing to monitor the patient, bed in lowest position, three side rails up, bed alarm on, bed close to nursing station, fall, aspiration and isolation precautions in place.
[2019-08-27 11:57] VITALS: BP_SYST 135
[2019-08-27] MEDS ORDERED: VANCOMYCIN HCL 1,250 MG in NS 250 ML IV SCH (12:00)
--- NOTE | 2019-08-27 12:00 | NUR ---
Attempt to call the family Cary Ruib [phone], lines keeps on ringing, no voicemail, will attempt again.
--- NOTE | 2019-08-27 12:08 | NUR ---
Discharge Planning: DCP faxed pt referral to [facility] (f [phone] p [phone]) DCP to follow up. Addendum: 08/27/19 at 1346 by Sophia Flores DP DCP followed up with [facility] (f [phone] p [phone]) Kit from admissions just stepped out, DCP will follow up. Addendum: 08/27/19 at 1458 by Sophia Flores DP GERALD spoke to Kit in admission at [facility] (f [phone] p [phone]) he is looking thru fax for referral.DCP will follow up
--- NOTE | 2019-08-27 13:30 | NUR ---
RN rounds patient resting in bed, awake, denies pain, assisted patient to bedside commode, patient voided, assisted back into bed, no other needs at this time, bed in lowest position, three side rails up, bed alarm on, bed close to nursing station, call light placed within reach, fall, aspiration and isolation precautions in place.
--- NOTE | 2019-08-27 14:17 | NUR ---
Spoke with Dr. Evans no addendum was made on the ankle xray regarding the left ankle, updated MD that patient's family did not call back regarding consent for EGD/Ogden today and the patient could not do the prep/refused to do the colonoscopy prep., per Dr. Evans, inquire of Dr. Morgan if the patient's EGD/Ogden can be done as outpatient and if the patient can transfer to SNF, if cleared by GI, the patient can return to SNF, will follow up.
[2019-08-27 15:28] VITALS: BP_SYST 123
--- NOTE | 2019-08-27 15:30 | NUR ---
Paged Dr. Morgan regarding plan of care, will follow up as needed.
--- NOTE | 2019-08-27 16:00 | NUR ---
Attempt to call the family Cary Rubi [phone], lines keeps on ringing, no voicemail, will attempt again.
--- NOTE | 2019-08-27 16:13 | NUR ---
RN rounds patient resting in bed, eyes closed, breathing is even and unlabored, no signs of distress, easy to wake, educated the patient on medication uses and potential side effects, she verbalized understanding, patient tolerated well, no other needs at this time, bed in lowest position, three side rails up, bed alarm on, call light within reach, fall, aspiration and isolation precautions in place.
--- NOTE | 2019-08-27 17:00 | NUR ---
Spoke with Dr. Morgan regarding plan of care, informed him that multiple attempts were made to reach the patient's daughter, no call back at this time, informed Dr. Morgan of conversation with Dr. Evans, per Dr. Morgan, the patient is okay to transfer back to SNF and follow up with Dr. Morgan as outpatient, will inform Dr. Evans as well, DC planning in process.
--- NOTE | 2019-08-27 18:00 | NUR ---
Consent spoke with the patient's son, Bryon Aguero, regarding attempts to reach family for consent and plan of care for the patient, Bryon gave consent for patient to have EGD/Colonoscopy. Bryon Aguero - [phone]
--- NOTE | 2019-08-27 18:22 | NUR ---
Closing note/paged Dr. Morgan assisted patient to bedside commode, she voided, tolerated well, IV line is intact, all needs met, will endorse report to [facility] shift nurse, bed in lowest position, three side rails up, call light within reach, fall, aspiration and isolation precautions in place. Paged Dr. Morgan regarding consent for EGD/[place].
--- NOTE | 2019-08-27 18:22 | NUR ---
paged paged Dr Morgan, dialed . s/w Elsa, Dr Aguilar is on-call.
--- NOTE | 2019-08-27 18:49 | NUR ---
Dr. Aguilar call back informed MD that consent was obtained - per Dr. Aguilar, hold off on EGD/[place] for now, please obtain a stool OB first - per. Dr. Aguilar because the patient may undergo an elective procedure (EGD/[place]) please test the patient for COVID, will put the order in and endorse to NOC shift nurse.
[2019-08-27 20:00] VITALS: BP_SYST 117
--- NOTE | 2019-08-27 21:00 | NUR ---
RN Rounds Patient is resting in bed at this time. Breathing is even and unlabored. No signs of distress noted. Seem to be understand but speaks only Nepali. No s/s of pain. Both legs are swollen, ingris bondage were wrapped and elevated both legs. Vital signs are stable. No other needs at this time. Bed is locked in the lowest position with call light within reach. Side rails up X 3. Bed alarm is on.
[2019-08-28 00:12] VITALS: BP_SYST 115
[2019-08-28 04:00] VITALS: BP_SYST 115
--- NOTE | 2019-08-28 05:00 | NUR ---
COVID TEST Patient is full awake. COVID test was ordered. Prior this test, it was emplaned to the patient by Nato who speaks Tajik. Since patient understood this test, it was done. Questionnaires were completed and sent to Lab. with the swab.
--- NOTE | 2019-08-28 05:53 | NUR ---
Patient has pain on IV site, new SL was started on left hand 22 G.
[2019-08-28] MEDS ORDERED: VANCOMYCIN HCL 1 GM/NS PREMIX 250 ML IV ONE (06:45)
--- NOTE | 2019-08-28 06:49 | NUR ---
CLOSING NOTES Patient resting in bed, awake, breathing evenly. IV catheter intact, patient tolerated it well. No other needs at this time. No BM during this shift and need to collect stool OB. COVID test was sent to lab.Needs met throughout the shift. Fall/safety precautions, will endorse care to morning shift RN
[2019-08-28 08:00] VITALS: BP_SYST 114
--- NOTE | 2019-08-28 08:00 | NUR ---
Initial notes In bed, sitting at the edge of the bed eating breakfast, has ingris wrap on both legs as ordered. denies any pain or shortness of breath at this time. confused. will monitor.
[2019-08-28] MEDS: MUPIROCIN 2% TOPICAL OINTMENT 22 GM NS SCH ×2 (09:03→21:55)
[2019-08-28] MEDS: CITALOPRAM HYDROBROMIDE 20 MG TABLET PO SCH (09:04)
[2019-08-28] MEDS: MELOXICAM 7.5 MG TABLET PO SCH (09:04)
[2019-08-28] MEDS: MEMANTINE HCL 5 MG TABLET PO SCH ×2 (09:04→21:53)
[2019-08-28] MEDS: GABAPENTIN 100 MG CAPSULE PO SCH ×3 (09:04→21:53)
[2019-08-28] MEDS: DOCUSATE SODIUM 100 MG CAPSULE PO SCH ×2 (09:05→21:53)
[2019-08-28] MEDS: SPIRONOLACTONE 25 MG TABLET (ALDACTONE) PO SCH (09:05)
[2019-08-28] MEDS: CALCIUM CARBONATE/VITAMIN D3 1 TAB TABLET PO SCH (09:06)
[2019-08-28] MEDS: DILTIAZEM HCL 120 MG CAP.SR.24H PO SCH (09:06)
[2019-08-28] MEDS: amLODIPine BESYLATE 10 MG TABLET PO SCH (09:06)
[2019-08-28] MEDS: CYANOCOBALAMIN 1000 mCg TABLET PO SCH (09:07)
[2019-08-28] MEDS: DONEPEZIL HCL 5 MG TABLET (ARICEPT) PO SCH (09:07)
[2019-08-28] MEDS: QUEtiapine FUMARATE 25 MG TABLET PO SCH ×3 (09:08→21:53)
--- NOTE | 2019-08-28 10:07 | NUR ---
Nutrition Update Juve Scale 16 noted. Pt admitted for cellulitis. Diet: Regular BMI: 30.0 RD to follow per nutrition care standards.
--- NOTE | 2019-08-28 10:30 | NUR ---
Notes- pt walking in the room and walking for her shoes and wants to wear them Informed pt that she does not have a shoe and socks is fine. pt gets agitated a little bit and then calm down.
[2019-08-28 12:33] VITALS: BP_SYST 124
--- NOTE | 2019-08-28 12:47 | NUR ---
Notes sitting in the chair eating lunch. Seen by Dr. graham at bedside. No distress noted.
[2019-08-28] MEDS: VANCOMYCIN HCL 1 GM/NS PREMIX 250 ML IV SCH ×2 (15:07→21:54)
--- NOTE | 2019-08-28 15:10 | NUR ---
Dietitian Recommendations *Recommend continuing regular diet Please see nutrition assessment for details. SS, ROYA
--- NOTE | 2019-08-28 15:30 | NUR ---
Notes- resting at this time. denies any pain or discomfort. will monitor.
[2019-08-28 17:24] VITALS: BP_SYST 112
[2019-08-28] MEDS: HYDROcodone/ACETAMIN 10-325 MG TAB PO PRN ×2 (17:45→23:37)
[2019-08-28] MEDS: NITROGLYCERIN 0.4 MG TAB.SUBL SL PRN ×2 (17:53→17:59)
--- NOTE | 2019-08-28 18:00 | NUR ---
complain of chest pain, nitro subligual given. will monitor.
--- NOTE | 2019-08-28 18:19 | NUR ---
Notes- Pt is eating at this time. chest pain is resolved after giving nitro x2. v/s stable. BP is 128/74, HR 75.
--- NOTE | 2019-08-28 19:30 | NUR ---
Opening notes Received report. Patient is resting in bed. No signs of distress noted. Breathing even and unlabored. IV patent and intact, no signs of infiltration noted. No needs at this time. Call light with the patient. Safety precautions in place.
--- NOTE | 2019-08-28 21:54 | NUR ---
Medications given. Educated the action and side effects of medications. Patient verbalized understanding and tolerated well. Patient sitting in bedside chair. Informed patient to call for help, when wanting to go back to bed. Patient verbalized understanding. No other needs. Call light with the patient. Safety precautions in place.
[2019-08-28 22:12] VITALS: BP_SYST 127
--- NOTE | 2019-08-28 22:30 | NUR ---
Spoke to Dr. Aguilar Informed MD that Covid-19 test is negative. MD stated may possibly do EGD/Colonoscopy on 08/30/2019. MD waiting for OBS results. Informed him they have not been collected yet, MD verbalized understanding. Will attempt to collect stool sample. Hat placed in bedside commode.
--- NOTE | 2019-08-28 22:43 | NUR ---
RN rounds Patient assisted back to bed. No signs of distress noted. Breathing even and unlabored. IV patent and intact, infusing ABX. No other needs. Call light with the patient. Safety precautions in place.
--- NOTE | 2019-08-29 00:45 | NUR ---
RN rounds Patient incontinent. Complete linen and gown changed. Hygiene care provided by patient. Patient tolerated well. No signs of distress noted. Breathing even and unlabored. No other needs. Call light with the patient. Safety precautions in place.
[2019-08-29 01:03] VITALS: BP_SYST 121
--- NOTE | 2019-08-29 02:30 | NUR ---
RN rounds Patient sleeping. No signs of distress noted. Breathing even and unlabored. No needs at this time. Call light with the patient. Safety precautions in place.
--- NOTE | 2019-08-29 04:45 | NUR ---
RN rounds Patient asleep. No signs of distress noted, breathing even and unlabored. No needs at this time. Call light with the patient. Safety precautions in place.
[2019-08-29] MEDS: VANCOMYCIN HCL 1 GM/NS PREMIX 250 ML IV SCH ×2 (05:17→18:35)
--- NOTE | 2019-08-29 05:51 | NUR ---
Dr. Evans at bedside/LAP Assessed patient. Patient able to be discharged if hemoglobin is okay. Awaiting lab results. Patient can do EGD/Colonoscopy outpatient. Call Dr. Evans when bed is available for antibiotic orders.
[2019-08-29 06:37] LABS: BASOPHILS % (AUTO) 0.3 % (0.0-2.0); EOSINOPHILS # (AUTO) 0.1 K/uL (0.0-0.4); EOSINOPHILS % (AUTO) 1.5 % (0.0-4.0); HEMATOCRIT 27.1 % (36-48); HEMOGLOBIN 8.9 g/dL (12.0-16.0); LYMPHOCYTES # (AUTO) 1.2 K/uL (1.0-5.5); MEAN CORPUSCULAR HEMOGLOBIN 28 pg (27-31); MEAN CORPUSCULAR HGB CONC 33 % (32-36); MEAN CORPUSCULAR VOLUME 87 fL (79.0-98.0); MONOCYTES # (AUTO) 0.8 K/uL (0.0-1.0); NEUTROPHILS # (AUTO) 5.4 K/uL (1.8-7.7); NEUTROPHILS % (AUTO) 71.2 % (40.0-70.0); PLATELET COUNT (AUTO) 259 K/uL (130-430); RED BLOOD CELL COUNT(AUTO) 3.14 MIL/uL (4.2-6.2); RED CELL DISTRIBUTION WIDTH 15.2 % (9.0-15.0); WHITE BLOOD COUNT (AUTO) 7.6 K/uL (4.8-10.8)
[2019-08-29 06:50] LABS: ALANINE AMINOTRANSFERASE 18 U/L (12-78); ANION GAP 6 (5-15); ASPARTATE AMINOTRANSFERASE 10 U/L (10-37); CALCIUM 8.2 mg/dL (8.4-11.0); CHLORIDE 105 mmol/L (98-107); CREATININE 0.93 mg/dL (0.55-1.30); GLUCOSE 72 mg/dL (70-99); POTASSIUM 4.5 mmol/L (3.5-5.1); SODIUM SERUM 140 mmol/L (136-145); TOTAL BILIRUBIN 0.3 mg/dL (0.0-1.0); UREA NITROGEN, BLOOD 26 mg/dL (8-21)
--- NOTE | 2019-08-29 06:50 | NUR ---
Closing notes Patient is resting in bed. No signs of distress noted. Breathing even and unlabored. No complaints of pain. IV patent and intact, infusing ABX. All needs met throughout the shift. Call light with the patient. Safety precautions in place. Will endorse care to day shift RN.
[2019-08-29 08:00] VITALS: BP_SYST 131
--- NOTE | 2019-08-29 08:00 | NUR ---
Patient is Mongolian speaking; A/Ox2 is determined thru translation for RN. IV on the left AC, #20, SL. POC is explained. Patient walks around the room with steady gait. Call light in place, patient is near nursing station, instructed home care liaison light.
[2019-08-29] MEDS: DONEPEZIL HCL 5 MG TABLET (ARICEPT) PO SCH (08:10)
[2019-08-29] MEDS: MEMANTINE HCL 5 MG TABLET PO SCH ×2 (08:10→21:38)
[2019-08-29] MEDS: QUEtiapine FUMARATE 25 MG TABLET PO SCH ×3 (08:10→21:38)
[2019-08-29] MEDS: CITALOPRAM HYDROBROMIDE 20 MG TABLET PO SCH (08:11)
[2019-08-29] MEDS: amLODIPine BESYLATE 10 MG TABLET PO SCH (08:12)
[2019-08-29] MEDS: MELOXICAM 7.5 MG TABLET PO SCH (08:12)
[2019-08-29] MEDS: SPIRONOLACTONE 25 MG TABLET (ALDACTONE) PO SCH (08:12)
[2019-08-29] MEDS: DILTIAZEM HCL 120 MG CAP.SR.24H PO SCH (08:13)
[2019-08-29] MEDS: MUPIROCIN 2% TOPICAL OINTMENT 22 GM NS SCH ×2 (08:13→21:38)
[2019-08-29] MEDS: GABAPENTIN 100 MG CAPSULE PO SCH ×3 (08:14→21:38)
[2019-08-29] MEDS: DOCUSATE SODIUM 100 MG CAPSULE PO SCH ×2 (08:14→21:38)
[2019-08-29] MEDS: CYANOCOBALAMIN 1000 mCg TABLET PO SCH (08:15)
[2019-08-29] MEDS: CALCIUM CARBONATE/VITAMIN D3 1 TAB TABLET PO SCH (08:15)
--- NOTE | 2019-08-29 10:10 | NUR ---
Attempting to assess patients BLE, but patient does not allow RN to do so despite explanation.
--- NOTE | 2019-08-29 12:00 | NUR ---
Patient is eating lunch no signs of distress noted.
[2019-08-29 12:36] VITALS: BP_SYST 111
--- NOTE | 2019-08-29 14:08 | NUR ---
Patient is seen walking around the room while peeking at the [address]
[2019-08-29 16:05] VITALS: BP_SYST 114
--- NOTE | 2019-08-29 16:17 | NUR ---
Patient is sitting in a chair at the moment.
--- NOTE | 2019-08-29 18:30 | NUR ---
Patient pulls out her IV; new IV site started at the left FA, #22.
--- NOTE | 2019-08-29 19:10 | NUR ---
OPENING NOTES PATIENT AWAKE AOX2. CONFUSION IS NOTED BUT FOLLOW ON COMMANDS. NO SIGNS OF RESPIRATORY DISTRESS NOTED. DENIES PAIN AND DISCOMFORT AT THIS TIME. PAPUA [place] SPEAKING. KERRI (FLAVORING OIL FILTERER)HELP WITH TRANSLATION. PATIENT ON ROOM AIR TOLERATING WELL. IV SITES, PATENCY NOTED. CALL LIGHT WITHIN REACH. BED LOCKED AND IN LOWEST POSITION. SAFETY PRECAUTIONS IN PLACE. NEEDS ATTENDED. WILL CONTINUE TO MONITOR PATIENT.
[2019-08-29 20:00] VITALS: BP_SYST 138
--- NOTE | 2019-08-29 21:30 | NUR ---
MED PASS DUE MEDICATION GIVEN AT THIS TIME. PATIENT TOLERATED WELL. PATIENT WAS EDUCATED ON MEDICATION THAT WAS TAKEN, PATIENT IS CONFUSED AND UNABLE TO VERBALIZED UNDERSTANDING.CATALOGING ASSISTANT-KERRI HELP WITH THE TRANSLATION. CALL LIGHT WITHIN REACH. PATIENT CLOSE TO NURSING STATION. PATIENT AMBULATES IN ROOM. WILL CONTINUE TO MONITOR PATIENT.
[2019-08-29 23:37] VITALS: BP_SYST 140
--- NOTE | 2019-08-29 23:39 | NUR ---
RN ROUNDS PATIENT AWAKE, SITTING AND TALKING BY HERSELF IN THE ROOM. COOPERATIVE AND CALM. DENIES PAIN AND DISCOMFORT. NO RESPIRATORY DISTRESS. NEEDS ARE ATTENDED. SAFETY PRECAUTIONS IN PLACE. WILL CONTINUE TO MONITOR PATIENT.
--- NOTE | 2019-08-30 01:20 | NUR ---
OPENING NOTES PATIENT AWAKE AOX2. NO SIGNS OF RESPIRATORY DISTRESS NOTED. DENIES PAIN AND DISCOMFORT AT THIS TIME. PANAMANIAN SPEAKING. KERRI (Stem)HELP WITH TRANSLATION. PATIENT ON ROOM AIR TOLERATING WELL. IV SITES, PATENCY NOTED. CALL LIGHT WITHIN REACH. BED LOCKED AND IN LOWEST POSITION. SAFETY PRECAUTIONS IN PLACE. NEEDS ATTENDED. WILL CONTINUE TO MONITOR PATIENT. Addendum: 08/30/19 at 0451 by Lara Parker RN ENTERED IN THE WRONG TIME. [facility]
--- NOTE | 2019-08-30 02:27 | NUR ---
RN ROUNDS PATIENT ASLEEP AT THIS TIME. PATIENT HAS NO SIGNS OF RESPIRATORY DISTRESS AND DISCOMFORT NOTED. BREATHING EVEN AND UNLABORED. CALL LIGHT WITHIN REACH. SAFETY PRECAUTIONS IN PLACE .WILL CONTINUE TO MONITOR PATIENT
[2019-08-30] MEDS: VANCOMYCIN HCL 1 GM/NS PREMIX 250 ML IV SCH ×2 (05:27→05:54)
--- NOTE | 2019-08-30 05:50 | NUR ---
DR. MEJIA AND DR. URBINA AT BEDSIDE WITH PATIENT
--- NOTE | 2019-08-30 06:40 | NUR ---
CLOSING NOTES PATIENT ASLEEP AT THIS TIME. NO SIGNS OF RESPIRATORY DISTRESS AND DISCOMFORT NOTED. BREATHING EVEN AND UNLABORED. CALL LIGHT WITHIN REACH. SAFETY PRECAUTIONS PLACE. ON CONTACT ISOLATION. ALL NEEDS MET THROUGHOUT THE SHIFT. WILL CONTINUE TO MONITOR UNTIL ENDORSE TO ONCOMING SHIFT NURSE FOR CONTINUITY OF CARE.
[2019-08-30 08:00] VITALS: BP_SYST 137
--- NOTE | 2019-08-30 08:00 | NUR ---
Opening Notes Patient is awake, alert and oriented x3. Patient is ambulatory, steady gait. No resp distress noted at this time. Breathing is even and unlabored. Patient denies any pain at this time. BSC at bedside. IV site on right shoulder, 22 gauge and left FA, 22 gauge. Patient was noted with bilateral swelling, educated patient to elevate legs while in bed. Still need to obtain a stool sample. Safety and fall precautions in place. Call light within reach. Bed in lowest position, locked. Will continue to monitor.
[2019-08-30] MEDS: MEMANTINE HCL 5 MG TABLET PO SCH (09:02)
[2019-08-30] MEDS: CYANOCOBALAMIN 1000 mCg TABLET PO SCH (09:02)
[2019-08-30] MEDS: MELOXICAM 7.5 MG TABLET PO SCH (09:02)
[2019-08-30] MEDS: DOCUSATE SODIUM 100 MG CAPSULE PO SCH (09:02)
[2019-08-30] MEDS: DONEPEZIL HCL 5 MG TABLET (ARICEPT) PO SCH (09:02)
[2019-08-30] MEDS: SPIRONOLACTONE 25 MG TABLET (ALDACTONE) PO SCH (09:03)
[2019-08-30] MEDS: GABAPENTIN 100 MG CAPSULE PO SCH (09:03)
[2019-08-30] MEDS: QUEtiapine FUMARATE 25 MG TABLET PO SCH (09:03)
[2019-08-30] MEDS: CALCIUM CARBONATE/VITAMIN D3 1 TAB TABLET PO SCH (09:03)
[2019-08-30] MEDS: CITALOPRAM HYDROBROMIDE 20 MG TABLET PO SCH (09:03)
[2019-08-30] MEDS: DILTIAZEM HCL 120 MG CAP.SR.24H PO SCH (09:04)
[2019-08-30] MEDS: amLODIPine BESYLATE 10 MG TABLET PO SCH (09:05)
--- NOTE | 2019-08-30 10:48 | NUR ---
Discharge Planning: GERALD followed up with [facility] (f [phone] p [phone]) Kit patient will go to Rm [facility], DCP spoke to nurse to make her aware. GERALD arranged transportation on will call with [facility] ([phone]). TRACIEP patient packet to nurse station.
[2019-08-30] MEDS ORDERED: VANC1FRO2 IV (10:50)
[2019-08-30 12:00] VITALS: BP_SYST 109
[2019-08-30] MEDS: LORazepam 1 MG TABLET PO PRN (13:56)
--- NOTE | 2019-08-30 14:00 | NUR ---
D/C Patient Patient given medication reconciliation form and D/C instructions. Exit Care provided. Patient verbalized understanding. MD discussed with patient the results and treatment provided. Ambulatory with steady gait for discharge to home. Patient in stable condition, ID band removed. IV catheter removed, intact and dressing applied, no active bleeding. Patient noted with agitation prior to departure. Given Ativan 0.5 mg, tolerated well. All belongings sent with patient. Gave report to Lisa at [facility].
[2019-08-30] MEDS ORDERED: VANCOMYCIN HCL 750 MG in NS 250 ML IV SCH (15:00)
[2019-08-30] MEDS ORDERED: BISACODYL 5 MG TABLET.DR (DULCOLAX) PO ONE (17:00)
[2019-08-30] MEDS ORDERED: GOLYTELY / COLYTE SOLUTION 4 LITERS PO ONE (18:00)
[2019-08-30] MEDS ORDERED: MAGNESIUM CITRATE 300 ML ORAL SOLUTION PO ONE (19:00)
== END 2019-08-30 14:00 | DRG 603 ==
LOC: SED 13:02 → SMU 15:07
PROVIDERS: ADMIT Internal Medicine Infectious Disease; ATTEND Internal Medicine Infectious Disease
PROC: B54MZZA Ultrasonography of Right Upper Extremity Veins, Guidance (ICD-10-PCS; principal; 2019-08-25)
PROC: 05HY33Z Insertion of Infusion Device into Upper Vein, Percutaneous Approach (ICD-10-PCS; 2019-08-25)
DX: L03.116 Cellulitis of left lower limb (principal); K92.2 Gastrointestinal hemorrhage, unspecified; E44.1 Mild protein-calorie malnutrition; I13.0 Hypertensive heart and chronic kidney disease with heart failure and stage 1 through stage 4 chronic kidney disease, or unspecified chronic kidney disease; M19.072 Primary osteoarthritis, left ankle and foot; L03.115 Cellulitis of right lower limb; J44.9 Chronic obstructive pulmonary disease, unspecified; F03.90 Unspecified dementia, unspecified severity, without behavioral disturbance, psychotic disturbance, mood disturbance, and anxiety; D64.9 Anemia, unspecified; M19.071 Primary osteoarthritis, right ankle and foot; E78.5 Hyperlipidemia, unspecified; F32.9 Major depressive disorder, single episode, unspecified; I87.8 Other specified disorders of veins; I50.9 Heart failure, unspecified; Z20.828 Contact with and (suspected) exposure to other viral communicable diseases; F41.9 Anxiety disorder, unspecified; I25.10 Atherosclerotic heart disease of native coronary artery without angina pectoris; K21.9 Gastro-esophageal reflux disease without esophagitis; N18.9 Chronic kidney disease, unspecified; Z79.899 Other long term (current) drug therapy; Z90.710 Acquired absence of both cervix and uterus; Z68.29 Body mass index [BMI] 29.0-29.9, adult
CPT/HCPCS: 36415; 71045; 80048; 80053; 80202-TC; 82550-TC; 82607; 82668; 82728; 82746; 83540-TC; 83550-TC; 83605; 83615-TC; 83880; 84443-TC; 84484; 85025; 85044-TC; 85610-TC; 87040-TC; 87081; 93005; 93970; 96365; 99285; C1751; J0690; J2175; J2250; J3370; J7030; J7050; J7060; U0003

== ENCOUNTER 2019-12-29 16:01 | Emergency (ER) | payer OTHER, MEDICAID, SELFPAY ==
[~2019-12-29] VITALS: Ht 157.5 cm; Wt 65.8 kg
[~2019-12-29 16:01] MED LIST changes: +ACET-2634 PO; +ACET325T53 PO; +DONE10TA44 PO; +NITSL SL; +OSCD500 PO; +VANC1FRO2 IV
[2019-12-29 16:05] VITALS: BP_SYST 148
--- NOTE | 2019-12-29 16:05 | NUR ---
Patient to ER bed 2 to gown for evaluation. Side rails up. Report given to LYNN.
--- NOTE | 2019-12-29 16:19 | NUR ---
Pt in [facility] with side rail up and in room 2. here for medical clearance. No distress noted.
--- NOTE | 2019-12-29 16:20 | NUR ---
ER Dr. Gregory at bedside examining patient.
--- NOTE | 2019-12-29 16:25 | NUR ---
CALLED [facility] TO GET REPORT, REPORT RECEIVED FROM MAYUR AT [phone]. MAIN NUMBER TO [place] WAS DISCONNECTED.
[2019-12-29 16:41] LABS: BASOPHILS % (AUTO) 0.4 % (0.0-2.0); EOSINOPHILS # (AUTO) 0.1 K/uL (0.0-0.4); EOSINOPHILS % (AUTO) 1.4 % (0.0-4.0); HEMATOCRIT 31.9 % (36-48); HEMOGLOBIN 10.4 g/dL (12.0-16.0); LYMPHOCYTES # (AUTO) 1.3 K/uL (1.0-5.5); LYMPHOCYTES % (AUTO) 18.8 % (20.5-51.5); MEAN CORPUSCULAR HEMOGLOBIN 27 pg (27-31); MEAN CORPUSCULAR HGB CONC 33 % (32-36); MEAN CORPUSCULAR VOLUME 82 fL (79.0-98.0); MONOCYTES # (AUTO) 0.6 K/uL (0.0-1.0); MONOCYTES % (AUTO) 9.1 % (1.7-9.3); NEUTROPHILS # (AUTO) 4.9 K/uL (1.8-7.7); NEUTROPHILS % (AUTO) 70.3 % (40.0-70.0); PLATELET COUNT (AUTO) 264 K/uL (130-430); RED BLOOD CELL COUNT(AUTO) 3.89 MIL/uL (4.2-6.2); RED CELL DISTRIBUTION WIDTH 14.7 % (9.0-15.0); WHITE BLOOD COUNT (AUTO) 6.9 K/uL (4.8-10.8)
--- NOTE | 2019-12-29 17:18 | NUR ---
pt resting in [facility]. alert and able to make needs known. No distress noted.
[2019-12-29 17:22] LABS: ANION GAP 6 (5-15); CALCIUM 8.5 mg/dL (8.4-11.0); CHLORIDE 103 mmol/L (98-107); CREATININE 1.14 mg/dL (0.55-1.30); GLUCOSE 124 mg/dL (70-99); POTASSIUM 4.4 mmol/L (3.5-5.1); SODIUM SERUM 137 mmol/L (136-145); UREA NITROGEN, BLOOD 28 mg/dL (8-21)
[2019-12-29 17:25] LABS: ALANINE AMINOTRANSFERASE 15 U/L (12-78); ALBUMIN 3.3 g/dL (3.4-4.8); ASPARTATE AMINOTRANSFERASE 16 U/L (10-37); TOTAL BILIRUBIN 0.3 mg/dL (0.0-1.0)
[2019-12-29 17:26] LABS: ACETAMINOPHEN < 1 ug/mL (1-30); ALCOHOL, BLOOD < 3 mg/dL (<10)
[2019-12-29 17:29] LABS: CHOLESTEROL 208 mg/dL (<200); HDL CHOLESTEROL 84 mg/dL (>55); LDL CHOLESTEROL 108 mg/dL (<100); TRIGLYCERIDES 87 mg/dL (30-150)
[2019-12-29 18:16] LABS: BARBITURATE, URINE NEGATIVE (NEG <=200)
[2019-12-29 18:17] LABS: BENZODIAZEPINE, URINE NEGATIVE (NEG <=150); CANNABINOID, URINE NEGATIVE (NEG <=50); COCAINE, URINE NEGATIVE (NEG <=150); METHAMPHETAMINES SCREEN,URINE NEGATIVE (NEG <=500); OPIATE, URINE NEGATIVE (NEG <=100); PHENCYCLIDINE SCREEN,URINE NEGATIVE (NEG <=25); UR TRICYCLIC ANTIDEPRESSANTS POSITIVE (NEG <=300); URINE AMPHETAMINE NEGATIVE (NEG <=500); URINE METHADONE NEGATIVE (NEG <=200); URINE OXYCODONE SCREEN NEGATIVE (NEG <=100); URINE PROPOXYPHENE SCREEN NEGATIVE (NEG <=300)
[2019-12-29 18:37] LABS: CLARITY/URINE CLEAR (CLEAR); COLOR,URINE YELLOW (YELLOW)
[2019-12-29 18:38] LABS: BILIRUBIN,URINE NEGATIVE (NEGATIVE); BLOOD, URINE NEGATIVE (NEGATIVE); GLUCOSE,URINE NEGATIVE (NEGATIVE); KETONES,URINE NEGATIVE (NEGATIVE); LEUKOCYTE ESTERASE ,URINE 1+ (NEGATIVE); NITRITE, URINE NEGATIVE (NEGATIVE); PROTEIN URINE NEGATIVE (NEGATIVE)
[2019-12-29 18:39] LABS: UROBILINOGEN,URINE 0.2 (0.2-1.0)
[2019-12-29 18:41] LABS: RBC,URINE 0-3 /HPF (0-3); WBC,URINE 0-3 /HPF (0-3)
[2019-12-29 18:43] LABS: MUCUS,URINE None Seen /LPF (None Seen)
--- NOTE | 2019-12-29 19:12 | NUR ---
Report called to [facility], spoke to YANELIS Thomson.
[2019-12-29] MEDS ORDERED: cephALEXin 500 MG CAPSULE PO ONE (19:15)
[2019-12-29 19:43] LABS: BACTERIA,URINE MODERATE /HPF (None Seen)
--- NOTE | 2019-12-29 20:14 | NUR ---
Patient given written and verbal discharge instructions and verbalizes understanding. ER MD discussed with patient the results and treatment provided. Patient in stable condition. ID arm band removed. Rx of Keflex given. Patient educated on pain management and to follow up with PMD. Pain Scale 0/10 Opportunity for questions provided and answered. Medication side effect fact sheet provided.
[2019-12-29 20:35] VITALS: BP_SYST 136
== END 2019-12-29 20:35 ==
LOC: SED 16:01
DX: N39.0 Urinary tract infection, site not specified (principal); J44.9 Chronic obstructive pulmonary disease, unspecified; N28.9 Disorder of kidney and ureter, unspecified; Z79.899 Other long term (current) drug therapy
CPT/HCPCS: 36415; 80053; 80061; 80307; 81000; 83036; 85025; 87081; 87086; 87426; 99285; G0480; G0481; G0482

== ENCOUNTER 2020-12-14 13:44 | Inpatient (IN) | payer OTHER, MEDICAID, SELFPAY ==
[~2020-12-14] VITALS: Ht 165.1 cm; Wt 86.6 kg
[2020-12-14 13:44] VITALS: BP_SYST 126
[~2020-12-14 13:44] MED LIST changes: +ASPI-1393 PO; +CALC-823 PO; +CEL20 PO; +CYAN100010 PO; -ESCI10TA PO; +L. A1TAB10 PO; +LACT1TAB10 PO; +LEVO500T89 PO; +MAGN24003 PO; -MAGN800O PO; -MELO15TA13 PO; +MOM PO; +MULT-300 PO; +MULT-33 PO; -OSCAL PO; +PRO40 PO; +QUERCETIN PO; +QUET50TA PO; -VANC1FRO2 IV
--- NOTE | 2020-12-14 13:44 | NUR ---
BROUGHT BACK TO HALLWAY BED AND TRIAGED. REPORT GIVEN TO NIRMAL
--- NOTE | 2020-12-14 13:45 | NUR ---
PT WAS BIB AMBULANCE FOR GENERALIZED WEAKNESS AND BILATERAL LOWER EXTREMITY SWELLING X 2 WEEKS. PT CAME FROM [facility] WITH A HISTORY OF CAD, COPD, GERD, ANEMIA, CHRONIC KIDNEY DISEASE, HTN, SCHIZOPHRENIA, AND DEPRESSION. PT RATES PAIN 5/10 ON PAIN SCALE CURRENTLY.
--- NOTE | 2020-12-14 14:06 | NUR ---
DR ART AT BEDSIDE FOR EVALUATION
--- NOTE | 2020-12-14 14:32 | NUR ---
xray at bedside
[2020-12-14 15:10] LABS: BASOPHILS % (AUTO) 0.3 % (0.0-2.0); EOSINOPHILS # (AUTO) 0.3 K/uL (0.0-0.4); EOSINOPHILS % (AUTO) 4.3 % (0.0-4.0); HEMOGLOBIN 10.5 g/dL (12.0-16.0); LYMPHOCYTES # (AUTO) 1.3 K/uL (1.0-5.5); LYMPHOCYTES % (AUTO) 17.4 % (20.5-51.5); MEAN CORPUSCULAR HEMOGLOBIN 25 pg (27-31); MEAN CORPUSCULAR HGB CONC 32 % (32-36); MEAN CORPUSCULAR VOLUME 79 fL (79.0-98.0); MONOCYTES # (AUTO) 0.7 K/uL (0.0-1.0); MONOCYTES % (AUTO) 8.8 % (1.7-9.3); NEUTROPHILS # (AUTO) 5.2 K/uL (1.8-7.7); NEUTROPHILS % (AUTO) 69.2 % (40.0-70.0); PLATELET COUNT (AUTO) 338 K/uL (130-430); RED BLOOD CELL COUNT(AUTO) 4.17 MIL/uL (4.2-6.2); RED CELL DISTRIBUTION WIDTH 15.1 % (9.0-15.0); WHITE BLOOD COUNT (AUTO) 7.5 K/uL (4.8-10.8)
[2020-12-14 15:33] LABS: ALANINE AMINOTRANSFERASE 12 U/L (12-78); ALBUMIN 2.8 g/dL (3.4-4.8); ASPARTATE AMINOTRANSFERASE 10 U/L (10-37); CALCIUM 8.9 mg/dL (8.4-11.0); CHLORIDE 102 mmol/L (98-107); CREATININE 1.25 mg/dL (0.55-1.30); GLUCOSE 120 mg/dL (70-99); POTASSIUM 3.9 mmol/L (3.5-5.1); SODIUM SERUM 139 mmol/L (136-145); TOTAL BILIRUBIN 0.3 mg/dL (0.0-1.0); UREA NITROGEN, BLOOD 23 mg/dL (8-21)
[2020-12-14 15:51] LABS: ANION GAP 12 (5-15)
--- NOTE | 2020-12-14 16:11 | NUR ---
Pt resting in bed. no signs of distress.
--- NOTE | 2020-12-14 16:19 | NUR ---
Spoke to Celestino HILARIO at [facility] regarding pt transportation. He will call back with continuous pickling line pickler information.
--- NOTE | 2020-12-14 17:55 | NUR ---
# 20 gauge angiocath placed to LAC. Use of asceptic technique. Opsite placed over site. Blood return noted. Blood for lab drawn from site. Flushed with 10 cc of normal saline. No evidence of infiltration noted. Patient tolerated well.
--- NOTE | 2020-12-14 17:56 | NUR ---
belongings list complete
[2020-12-14] MEDS ORDERED: CALC-823 PO (18:04)
[2020-12-14] MEDS ORDERED: NEU100 PO (18:04)
[2020-12-14] MEDS ORDERED: SPIR25TA PO (18:04)
[2020-12-14] MEDS ORDERED: ASPI-989 PO (18:04)
[2020-12-14] MEDS ORDERED: DILT120C89 PO (18:04)
[2020-12-14] MEDS ORDERED: PANT20TA2 PO (18:04)
[2020-12-14] MEDS ORDERED: DRON400T PO (18:04)
[2020-12-14] MEDS ORDERED: CEL20 PO (18:04)
[2020-12-14] MEDS ORDERED: LACT1CAP57 PO (18:04)
[2020-12-14] MEDS ORDERED: DOCU-144 PO (18:04)
[2020-12-14] MEDS ORDERED: MEMA10TA PO (18:04)
[2020-12-14] MEDS ORDERED: NITR1PAT76 TD (18:04)
[2020-12-14] MEDS ORDERED: DONE10TA44 PO (18:04)
[2020-12-14] MEDS ORDERED: SER25 PO ×2 (18:04)
[2020-12-14] MEDS ORDERED: CYAN100T44 PO (18:04)
--- NOTE | 2020-12-14 18:04 | NUR ---
med rec complete
--- NOTE | 2020-12-14 19:16 | NUR ---
Report given to Aram HILARIO.
--- NOTE | 2020-12-14 19:16 | NUR ---
Pt pulled off monitors and pulled IV out.
--- NOTE | 2020-12-14 20:20 | NUR ---
Pt remains in stable condition, Resting on gurney rails up
--- NOTE | 2020-12-14 20:25 | NUR ---
Pt's Son ( Que ) called and wanted to ask if he can visit pt on Tele floor once she gets room assignment, Please call him at [phone] to update
--- NOTE | 2020-12-14 21:32 | NUR ---
VSS no s/s of acute distress Resting on gurney rails up
--- NOTE | 2020-12-14 22:33 | NUR ---
Pt remains in stable condition, A/O at times however, does have hx of dementia
--- NOTE | 2020-12-14 23:01 | NUR ---
Pt aware that she is awaiting hospital room assignment
--- NOTE | 2020-12-15 00:12 | NUR ---
Patient will be admitted to care of Dr. Holguin. Admitted to Tele unit. Will go to room 103B. Belongings list completed. Complete and up to date summary report printed. SBAR report to be given at bedside with opportunity for questions.
--- NOTE | 2020-12-15 00:12 | NUR ---
Transfer to Tele via ACLS protocol. Licensed nurse present. IV present no signs or symptoms of infiltration.
--- NOTE | 2020-12-15 00:12 | NUR ---
ADMISSION NOTE Received patient from ER via gurney. Patient admitted with diagnosis of A-Fib, Failure to Thrive. Patient is awake, alert, oriented X 1. Patient oriented to hospital room, call light, toileting, pain management and safety-teach back done. Patient informed that appeals writer will be primary nurse and that their room number is 103B. Personal belongings checked and Belongings List documented. Call light within reach.
[2020-12-15 00:15] VITALS: BP_SYST 119
--- NOTE | 2020-12-15 00:40 | NUR ---
CONSULT REASON FOR CONSULT: AFIB PERSON I SPOKE WITH: JACINDA CONSULTING PHYSICIAN: DR. FROST JOURNEYMAN MECHANIC PHONE NUMBER: [phone] ORDERING PHYSICIAN: DR. BROWN
--- NOTE | 2020-12-15 02:05 | NUR ---
Late entry due to patient care 0115 Had moderate amount soft yellow bowl movement. Bed bath given. Gown, linen changed. Tolerated fair. Able to help turn.
--- NOTE | 2020-12-15 03:52 | NUR ---
Resting quietly with eyes closed, no apparent distress. Fall precautions in place. Call light within reach.
[2020-12-15 07:00] VITALS: BP_SYST 96
[2020-12-15 07:03] LABS: BASOPHILS % (AUTO) 0.3 % (0.0-2.0); EOSINOPHILS # (AUTO) 0.3 K/uL (0.0-0.4); EOSINOPHILS % (AUTO) 3.7 % (0.0-4.0); LYMPHOCYTES # (AUTO) 1.1 K/uL (1.0-5.5); LYMPHOCYTES % (AUTO) 11.9 % (20.5-51.5); MEAN CORPUSCULAR HEMOGLOBIN 26 pg (27-31); MEAN CORPUSCULAR HGB CONC 32 % (32-36); MEAN CORPUSCULAR VOLUME 80 fL (79.0-98.0); MONOCYTES # (AUTO) 0.8 K/uL (0.0-1.0); MONOCYTES % (AUTO) 8.3 % (1.7-9.3); NEUTROPHILS % (AUTO) 75.8 % (40.0-70.0); PLATELET COUNT (AUTO) 314 K/uL (130-430); RED BLOOD CELL COUNT(AUTO) 3.88 MIL/uL (4.2-6.2); RED CELL DISTRIBUTION WIDTH 15.2 % (9.0-15.0); WHITE BLOOD COUNT (AUTO) 9.2 K/uL (4.8-10.8)
--- NOTE | 2020-12-15 07:28 | NUR ---
Closing note Resting quietly with eyes closed, no apparent distress. No c/o pain or discomfort. IV access found pulled out. Will endorse to oncoming shift RN. Fall precautions in place. Call light within reach.
[2020-12-15 07:44] LABS: ANION GAP 9 (5-15); CALCIUM 8.8 mg/dL (8.4-11.0); CHLORIDE 104 mmol/L (98-107); CREATININE 1.04 mg/dL (0.55-1.30); GLUCOSE 112 mg/dL (70-99); POTASSIUM 3.9 mmol/L (3.5-5.1); SODIUM SERUM 141 mmol/L (136-145); UREA NITROGEN, BLOOD 25 mg/dL (8-21)
[2020-12-15 08:00] VITALS: BP_SYST 105; BP_SYST 112
[2020-12-15 08:07] LABS: ALANINE AMINOTRANSFERASE 9 U/L (12-78); ALBUMIN 2.8 g/dL (3.4-4.8); ASPARTATE AMINOTRANSFERASE 13 U/L (10-37); THYROID STIMULATING HORMONE 1.99 uIu/mL (0.36-3.74); TOTAL BILIRUBIN 0.3 mg/dL (0.0-1.0)
[2020-12-15 09:45] LABS: CHOLESTEROL 198 mg/dL (<200); HDL CHOLESTEROL 53 mg/dL (>55); LDL CHOLESTEROL 133 mg/dL (<100); TRIGLYCERIDES 60 mg/dL (30-150)
--- NOTE | 2020-12-15 09:45 | NUR ---
Nutrition Update Juve Scale 14 noted. Pt admitted for atr fibr, FTT. Diet: N/A BMI: 31.9 kg/m2 RD to follow per nutrition care standards.
[2020-12-15 11:27] VITALS: BP_SYST 136
--- NOTE | 2020-12-15 13:22 | NUR ---
--CONSULTATION: REASON FOR CONSULT: DEMENTIA CONSULTING PHYSICIAN: ROXANE LOPEZ ORDERED BY: STEPHANIE SPOKE WITH JAI [phone] DENNY FELTON IS POWER STATION OPERATOR --
[2020-12-15] MEDS: D5/0.45 NS 1,000 ML IV SCH ×2 (13:30→19:13)
[2020-12-15 15:33] VITALS: BP_SYST 143
[2020-12-15] MEDS: CITALOPRAM HYDROBROMIDE 20 MG TABLET PO SCH (17:45)
[2020-12-15] MEDS ORDERED: COMMUNICATION ORDER XX ONE (17:45)
--- NOTE | 2020-12-15 19:45 | NUR ---
Pt report received. Pt alert, responsive, and cooperative. PIV Left wrist patent and secure with D5 1/2 NS infusing at 50 mL/hr without difficulty. Generalized swelling to BLE. Pt denies c/o pain or discomfort and no needs verbalized at this time.
[2020-12-15] MEDS ORDERED: MILK OF MAGNESIA 30 ML UDC PO PRN (21:45)
[2020-12-15] MEDS: GABAPENTIN 100 MG CAPSULE PO SCH (22:02)
[2020-12-15] MEDS: QUEtiapine FUMARATE 25 MG TABLET PO SCH (22:03)
[2020-12-15] MEDS: MEMANTINE HCL 5 MG TABLET PO SCH (22:03)
[2020-12-15] MEDS: DONEPEZIL HCL 5 MG TABLET (ARICEPT) PO SCH (22:03)
[2020-12-16 01:24] VITALS: BP_SYST 143
--- NOTE | 2020-12-16 04:00 | NUR ---
Pt incontinent of urine, soiled linens. Pt cleaned, clean gown and sheets applied.
--- NOTE | 2020-12-16 05:30 | NUR ---
Pt pulled out PIV. No active bleeding noted to site. 24 GA PIV x 3 attempts, successful to Right inner wrist, good blood return, easy NS flush. Secured with tap and tegaderm with REYMUNDO bandage support. D5 1/2 NS infusing to new site at 50 mL/hr.
--- NOTE | 2020-12-16 06:15 | NUR ---
In/Out urinary catheter, urine sample collected and sent to lab.
--- NOTE | 2020-12-16 07:30 | NUR ---
Pt report given to oncoming RN. Pt resting quietly with eyes closed, even and non-labored respirations. D5 1/2 NS continues to infuse at 50 mL/hr to PIV Right inner wrist without difficulty. VSS, NAD.
[2020-12-16] MEDS: SPIRONOLACTONE 25 MG TABLET (ALDACTONE) PO SCH (08:57)
[2020-12-16] MEDS: LACTOBACILLUS RHAMNOSUS GG 1 CAP CAPSULE PO SCH (08:58)
[2020-12-16] MEDS: DOCUSATE SODIUM 100 MG CAPSULE PO SCH (08:58)
[2020-12-16] MEDS: CITALOPRAM HYDROBROMIDE 20 MG TABLET PO SCH (08:59)
[2020-12-16] MEDS: DILTIAZEM HCL 120 MG CAP.SR.24H PO SCH (08:59)
[2020-12-16] MEDS: QUEtiapine FUMARATE 25 MG TABLET PO SCH ×2 (08:59→21:13)
[2020-12-16] MEDS: GABAPENTIN 100 MG CAPSULE PO SCH ×3 (09:00→21:13)
[2020-12-16] MEDS: PANTOPRAZOLE SODIUM 40 MG TAB PO SCH (09:00)
[2020-12-16] MEDS: MEMANTINE HCL 5 MG TABLET PO SCH ×2 (09:00→21:12)
[2020-12-16] MEDS: D5/0.45 NS 1,000 ML IV SCH ×2 (09:02→21:41)
[2020-12-16] MEDS: NITROGLYCERIN 0.4 MG/HR PATCH.TD24 TD SCH (09:04)
[2020-12-16] MEDS: amLODIPine BESYLATE 10 MG TABLET PO SCH (09:08)
[2020-12-16] MEDS: ACETAMINOPHEN 325 MG TABLET PO PRN ×2 (09:17→11:21)
[2020-12-16] MEDS: CALCIUM CARBONATE/VITAMIN D3 1 TAB TABLET PO SCH (09:24)
[2020-12-16] MEDS: DRONEDARONE HYDROCHLORIDE 400 MG TABLET PO SCH (09:31)
[2020-12-16 09:37] LABS: BILIRUBIN,URINE NEGATIVE (NEGATIVE); CLARITY/URINE CLEAR (CLEAR); COLOR,URINE YELLOW (YELLOW); GLUCOSE,URINE NEGATIVE (NEGATIVE); KETONES,URINE NEGATIVE (NEGATIVE); LEUKOCYTE ESTERASE ,URINE NEGATIVE (NEGATIVE); NITRITE, URINE NEGATIVE (NEGATIVE); PROTEIN URINE NEGATIVE (NEGATIVE); UROBILINOGEN,URINE 0.2 (0.2-1.0)
[2020-12-16 09:40] LABS: BLOOD, URINE NEGATIVE (NEGATIVE)
[2020-12-16] MEDS: ASPIRIN 325 MG TABLET PO SCH (10:00)
[2020-12-16 11:31] VITALS: BP_SYST 134
[2020-12-16 12:00] VITALS: BP_SYST 135
--- NOTE | 2020-12-16 13:42 | NUR ---
Pt's son called. Updated son with on status.
--- NOTE | 2020-12-16 14:54 | NUR ---
Dietitian Recommendations * Recommend cardiac diet w/ Prosource daily (supplement provide an additional 60 kcal/day, 15 gm protein/day) ROYA HAGAN Please refer to Nutrition Assessment for details. Addendum: 12/16/20 at [address] Amended: Links added. Addendum: 12/16/20 at [address] CORRECTION: * Recommend cardiac diet w/ Prosource BID (supplement provide an additional 120 kcal/day, 30 gm protein/day) ROYA HAGAN
[2020-12-16 15:31] VITALS: BP_SYST 136
[2020-12-16 16:24] VITALS: BP_SYST 140
--- NOTE | 2020-12-16 19:00 | NUR ---
Received bedside report from rn. Pt sitting up in bed. Pt aox1-2. rr even and unlabored on ra. Iv intact with no redness or swelling. call light within reach. bed locked in lowest position. bed alarm. will continue to monitor.
[2020-12-16 21:11] VITALS: BP_SYST 111
[2020-12-16] MEDS: DONEPEZIL HCL 5 MG TABLET (ARICEPT) PO SCH (21:13)
--- NOTE | 2020-12-16 22:00 | NUR ---
Pt in bed resting. Pt turned and changed. pt co of positional pain in L leg. comfort measures in place for L leg. all other needs meet. Will continue to monitor.
[2020-12-17 01:35] VITALS: BP_SYST 119
--- NOTE | 2020-12-17 02:19 | NUR ---
Pt in bed sleeping with eyes closed. pt easily awaken. ivf infusing. call light within reach. bed alarm on. will continue to monitor.
--- NOTE | 2020-12-17 07:22 | NUR ---
endorsed care to oncoming nurse
[2020-12-17] MEDS: DOCUSATE SODIUM 100 MG CAPSULE PO SCH (11:12)
[2020-12-17] MEDS: DRONEDARONE HYDROCHLORIDE 400 MG TABLET PO SCH (11:13)
[2020-12-17] MEDS: GABAPENTIN 100 MG CAPSULE PO SCH ×3 (11:14→19:59)
[2020-12-17] MEDS: DILTIAZEM HCL 120 MG CAP.SR.24H PO SCH (11:15)
[2020-12-17] MEDS: MEMANTINE HCL 5 MG TABLET PO SCH ×2 (11:15→19:59)
[2020-12-17] MEDS: amLODIPine BESYLATE 10 MG TABLET PO SCH (11:16)
[2020-12-17] MEDS: CITALOPRAM HYDROBROMIDE 20 MG TABLET PO SCH (11:16)
[2020-12-17] MEDS: PANTOPRAZOLE SODIUM 40 MG TAB PO SCH (11:16)
[2020-12-17] MEDS: QUEtiapine FUMARATE 25 MG TABLET PO SCH ×2 (11:17→19:59)
[2020-12-17] MEDS: SPIRONOLACTONE 25 MG TABLET (ALDACTONE) PO SCH (11:17)
[2020-12-17] MEDS: LACTOBACILLUS RHAMNOSUS GG 1 CAP CAPSULE PO SCH (11:17)
[2020-12-17] MEDS: CALCIUM CARBONATE/VITAMIN D3 1 TAB TABLET PO SCH (11:18)
[2020-12-17] MEDS: ASPIRIN 325 MG TABLET PO SCH (11:18)
[2020-12-17] MEDS: NITROGLYCERIN 0.4 MG/HR PATCH.TD24 TD SCH (11:19)
[2020-12-17 11:44] VITALS: BP_SYST 122
[2020-12-17 17:51] VITALS: BP_SYST 101
[2020-12-17] MEDS: DONEPEZIL HCL 5 MG TABLET (ARICEPT) PO SCH (19:59)
[2020-12-17 20:00] VITALS: BP_SYST 100
--- NOTE | 2020-12-17 22:00 | NUR ---
ROUNDING NOTES Patient resting in bed - no s/s pain or distress noted. Respirations even and unlabored - head of bed elevated. IV site patent - no s/s redness, infection, or infiltration. Bed locked and in lowest position. Call light within reach - bed alarm on.
[2020-12-18] VITALS: BP_SYST 112
[2020-12-18 08:00] VITALS: BP_SYST 101
[2020-12-18] MEDS: DRONEDARONE HYDROCHLORIDE 400 MG TABLET PO SCH (08:21)
[2020-12-18] MEDS: SPIRONOLACTONE 25 MG TABLET (ALDACTONE) PO SCH (08:22)
[2020-12-18] MEDS: ASPIRIN 325 MG TABLET PO SCH (08:23)
[2020-12-18] MEDS: CITALOPRAM HYDROBROMIDE 20 MG TABLET PO SCH (08:24)
[2020-12-18] MEDS: DOCUSATE SODIUM 100 MG CAPSULE PO SCH (08:24)
[2020-12-18] MEDS: DILTIAZEM HCL 120 MG CAP.SR.24H PO SCH (08:24)
[2020-12-18] MEDS: MEMANTINE HCL 5 MG TABLET PO SCH ×2 (08:25→20:41)
[2020-12-18] MEDS: LACTOBACILLUS RHAMNOSUS GG 1 CAP CAPSULE PO SCH (08:25)
[2020-12-18] MEDS: amLODIPine BESYLATE 10 MG TABLET PO SCH (08:26)
[2020-12-18] MEDS: GABAPENTIN 100 MG CAPSULE PO SCH ×3 (08:26→20:40)
[2020-12-18] MEDS: PANTOPRAZOLE SODIUM 40 MG TAB PO SCH (08:27)
[2020-12-18] MEDS: CALCIUM CARBONATE/VITAMIN D3 1 TAB TABLET PO SCH (08:27)
[2020-12-18] MEDS: QUEtiapine FUMARATE 25 MG TABLET PO SCH ×2 (08:27→20:41)
[2020-12-18] MEDS: NITROGLYCERIN 0.4 MG/HR PATCH.TD24 TD SCH (08:28)
[2020-12-18 11:33] VITALS: BP_SYST 135
[2020-12-18 15:30] VITALS: BP_SYST 122
[2020-12-18 20:00] VITALS: BP_SYST 125
[2020-12-18] MEDS: D5/0.45 NS 1,000 ML IV SCH (20:36)
[2020-12-18] MEDS: DONEPEZIL HCL 5 MG TABLET (ARICEPT) PO SCH (20:41)
[2020-12-19 00:16] VITALS: BP_SYST 123
--- NOTE | 2020-12-19 07:00 | NUR ---
RN OPENING NOTE PATIENT APPEARS TO BE RESTING BREATHING IS EQUAL AND NON LABORED. PATIENT HAS ALL SAFETY PRECAUTIONS IN PLACE. NO OTHER NEEDS AT THIS TIME.
[2020-12-19 08:05] VITALS: BP_SYST 120
[2020-12-19] MEDS: DRONEDARONE HYDROCHLORIDE 400 MG TABLET PO SCH (08:06)
[2020-12-19] MEDS: DOCUSATE SODIUM 100 MG CAPSULE PO SCH (08:07)
[2020-12-19] MEDS: CALCIUM CARBONATE/VITAMIN D3 1 TAB TABLET PO SCH (08:07)
[2020-12-19] MEDS: PANTOPRAZOLE SODIUM 40 MG TAB PO SCH (08:07)
[2020-12-19] MEDS: NITROGLYCERIN 0.4 MG/HR PATCH.TD24 TD SCH (08:07)
[2020-12-19] MEDS: CITALOPRAM HYDROBROMIDE 20 MG TABLET PO SCH (08:07)
[2020-12-19] MEDS: MEMANTINE HCL 5 MG TABLET PO SCH (08:07)
[2020-12-19] MEDS: DILTIAZEM HCL 120 MG CAP.SR.24H PO SCH (08:08)
[2020-12-19] MEDS: SPIRONOLACTONE 25 MG TABLET (ALDACTONE) PO SCH (08:09)
[2020-12-19] MEDS: QUEtiapine FUMARATE 25 MG TABLET PO SCH (08:09)
[2020-12-19] MEDS: amLODIPine BESYLATE 10 MG TABLET PO SCH (08:09)
[2020-12-19] MEDS: GABAPENTIN 100 MG CAPSULE PO SCH ×2 (08:17→14:29)
[2020-12-19] MEDS: LACTOBACILLUS RHAMNOSUS GG 1 CAP CAPSULE PO SCH (08:17)
[2020-12-19] MEDS ORDERED: ASPIRIN 81 MG TABLET(ECOTRIN) ONE (08:20)
--- NOTE | 2020-12-19 08:23 | NUR ---
MEDICATION PATENTS SCHEDULED MEDICATION GIVEN PER ORDER. PATIENT TOLERATED WELL. PATIENT EDUCATED DRYWALL CARRIER LIGHT FOR ASSISTANCE. CALL LIGHT IS WITH HER. PATIENT HAS NO OTHER NEEDS AT THIS TIME. NO SIGNS OF ANY DISTRESS, BREATHING IS EQUAL AND NON LABORED.
[2020-12-19] MEDS ORDERED: ASPIRIN 81 MG TABLET(ECOTRIN) PO SCH (09:00)
--- NOTE | 2020-12-19 10:00 | NUR ---
INCONTINENCE CARE PATIENT IS AWAKE AND ALERT, PATIENT PROVIDED WITH INCONTINENCE CARE. PATIENT HAS ALL SAFETY PRECAUTIONS IN PLACE. NO OTHER NEEDS AT THIS TIME.
[2020-12-19 11:44] VITALS: BP_SYST 146
--- NOTE | 2020-12-19 12:25 | NUR ---
RN ROUNDING PATIENT IS AWAKE AND ALERT EATING LUNCH. PATIENT HAS NO COMPLAINTS AT THIS TIME. ALL SAFETY PRECAUTIONS IN PLACE. CALL LIGHT IS WITH HER EDUCATED BUT PATIENT IS CONFUSED. PATIENT HAS NO OTHER NEEDS AT THIS TIME.
--- NOTE | 2020-12-19 14:29 | NUR ---
MEDICATION/ MD PATIENTS SCHEDULED MEDICATION GIVEN PER ORDER. PATIENT IS AWAKE AND ALERT TOLERATED MEDICATION WELL. INFORMED MD OF DVT PROPHYLAXIS STATES SHE WILL ORDER. PATIENT HAS ALL SAFETY PRECAUTIONS IN PLACE. CALL LIGHT IS WITH HER EDUCATED TO USE FOR ASSISTANCE. NO OTHER NEEDS AT THIS TIME.
[2020-12-19] MEDS ORDERED: ENOXAPARIN SODIUM 40 MG/0.4 ML SYRINGE SUBCUT ONE (15:00)
[2020-12-19 15:28] VITALS: BP_SYST 147
--- NOTE | 2020-12-19 15:47 | NUR ---
DISCHARGE PLANNING Order to dc SNF. Pt from [facility] & faxed order/pt info to [facility]. Received call from Kit at [facility], pt accepted back to room 9B. Called & set up transportation with [facility] for 545pm. Called & updated son Bryon Aguero, ph [phone], agreeable with dc back to [facility] today. Nurse updated. Packet to nsg station. [facility], room 9B, report ph [phone] [facility] transportation pick up worker at 545pm, ph [phone]
--- NOTE | 2020-12-19 16:05 | NUR ---
medication patients scheduled medication given per order. patient is awake and alert. informed she is going back home. patient has all safety precautions in place. no signs of any distress, breathing is equal and non labored. call light is with her. no other needs at this time.
[2020-12-19 17:27] VITALS: BP_SYST 147
--- NOTE | 2020-12-19 18:30 | NUR ---
Discharge Note Patient was transferred back to [facility] report was to Dianne nurse at facility. Son Bryon Aguero was informed of transferred and ok with it. patients id band removed, place new one with name and only on it. patients IV catheter removed catheter intact, applied Guaze and tape to insertion site. patients belongings with patient. transferred by [facility] via gurney. Patient informed of transferred by is confused. Discharge paperwork was given to ambulance. receiving physician is Dr. Holguin. patient ate dinner prior to leaving. patient shows no signs of any distress.
[2020-12-20] MEDS ORDERED: ENOXAPARIN SODIUM 40 MG/0.4 ML SYRINGE SUBCUT SCH (09:00)
== END 2020-12-19 18:10 | DRG 603 ==
LOC: SED 13:44 → STU 17:18 → SMU 12-17 11:53
PROVIDERS: ADMIT Internal Medicine; ATTEND Internal Medicine
DX: L03.119 Cellulitis of unspecified part of limb (principal); I48.91 Unspecified atrial fibrillation; F03.90 Unspecified dementia, unspecified severity, without behavioral disturbance, psychotic disturbance, mood disturbance, and anxiety; F20.9 Schizophrenia, unspecified; I25.10 Atherosclerotic heart disease of native coronary artery without angina pectoris; I12.9 Hypertensive chronic kidney disease with stage 1 through stage 4 chronic kidney disease, or unspecified chronic kidney disease; Z20.822 Contact with and (suspected) exposure to COVID-19; N18.9 Chronic kidney disease, unspecified; Z96.611 Presence of right artificial shoulder joint; Z96.653 Presence of artificial knee joint, bilateral; Z79.899 Other long term (current) drug therapy; Z79.82 Long term (current) use of aspirin; Z79.1 Long term (current) use of non-steroidal anti-inflammatories (NSAID)
CPT/HCPCS: 36415; 71045; 80053; 80061; 81003; 83880; 84443; 84484; 85025; 85379; 87081; 93005; 99285; G0378; J1650